=== PATIENT | female | born 1940 | race American Indian/Alaskan Native ===

== ENCOUNTER 2016-10-03 19:37 | Emergency (ER) | payer MEDICARE, MEDICAID ==
[~2016-10-03] VITALS: Ht 162.6 cm; Wt 71.9 kg
[~2016-10-03 19:37] MED LIST: ACTONEL PO; ATOR10TA PO; CEFD300C37 PO; INSULIN 70/30 SQ; LEVO25TA4 PO; LIPITOR PO; METF500T4 PO; METFORMIN PO; RAMI1.25 PO; SYNTHROID PO
[2016-10-03 21:15] VITALS: BP 128/53
== END 2016-10-03 21:22 | disposition home or self-care (01) ==
LOC: ED 21:10
DX: N30.00 Acute cystitis without hematuria (principal); E11.9 Type 2 diabetes mellitus without complications; I10 Essential (primary) hypertension; Z86.73 Personal history of transient ischemic attack (TIA), and cerebral infarction without residual deficits
CPT/HCPCS: 81001; 87077; 87086; 87186; 99284

== ENCOUNTER → 2016-10-13 | Outpatient (CLI) | payer MEDICARE, MEDICAID | END | disposition home or self-care (01) | LOC: CFH 10:04 | PROVIDERS: ATTEND Internal Medicine Cardiovascular Disease | DX: I08.3 Combined rheumatic disorders of mitral, aortic and tricuspid valves (principal); I10 Essential (primary) hypertension; E78.5 Hyperlipidemia, unspecified | CPT/HCPCS: 93306 ==

== ENCOUNTER → 2016-10-20 | Outpatient (CLI) | payer MEDICARE, MEDICAID ==
[2016-10-20 14:07] LABS: ASPARTATE AMINO TRANSFERASE 17 U/L (15-37); BLOOD UREA NITROGEN 7 mg/dL (7-18)
== END | disposition home or self-care (01) ==
LOC: LAB 08:40
PROVIDERS: ATTEND Internal Medicine Cardiovascular Disease
DX: E11.9 Type 2 diabetes mellitus without complications (principal); I10 Essential (primary) hypertension; I35.1 Nonrheumatic aortic (valve) insufficiency
CPT/HCPCS: 36415; 80053; 80061; 83036; 84436; 84481; 85025

== ENCOUNTER → 2016-11-11 | Outpatient (CLI) | payer MEDICARE, MEDICAID | END | disposition home or self-care (01) | LOC: CFH 12:49 | PROVIDERS: ATTEND Nurse Practitioner | DX: M25.552 Pain in left hip (principal); Z96.642 Presence of left artificial hip joint; Z98.1 Arthrodesis status; Z98.890 Other specified postprocedural states ==

== ENCOUNTER 2017-06-30 11:24 | Emergency (ER) | payer MEDICARE, MEDICAID ==
[~2017-06-30] VITALS: Ht 162.6 cm; Wt 73.8 kg
[2017-06-30 13:39] VITALS: BP 148/79
== END 2017-06-30 13:41 | disposition home or self-care (01) ==
LOC: ED 13:35
DX: S83.92XA Sprain of unspecified site of left knee, initial encounter (principal); S73.102A Unspecified sprain of left hip, initial encounter; S50.01XA Contusion of right elbow, initial encounter; W01.0XXA Fall on same level from slipping, tripping and stumbling without subsequent striking against object, initial encounter; Y93.89 Activity, other specified; Y92.009 Unspecified place in unspecified non-institutional (private) residence as the place of occurrence of the external cause; Y99.8 Other external cause status
CPT/HCPCS: 99284

== ENCOUNTER → 2017-07-23 | Outpatient (CLI) | payer MEDICARE, MEDICAID ==
[2017-07-23 12:36] LABS: HCT (SEDRATE) 38.6 % (34.6-47.8)
== END | disposition home or self-care (01) ==
LOC: LAB 09:37
PROVIDERS: ATTEND Orthopaedic Surgery
DX: Z47.1 Aftercare following joint replacement surgery (principal); Z96.642 Presence of left artificial hip joint
CPT/HCPCS: 36415; 85651; 86140

== ENCOUNTER → 2017-09-14 | Outpatient (CLI) | payer MEDICAID, MEDICARE | END | disposition home or self-care (01) | LOC: CFH 08:17 | PROVIDERS: ATTEND Nurse Practitioner | DX: M48.061 Spinal stenosis, lumbar region without neurogenic claudication (principal); S32.020D Wedge compression fracture of second lumbar vertebra, subsequent encounter for fracture with routine healing; S32.030D Wedge compression fracture of third lumbar vertebra, subsequent encounter for fracture with routine healing; X58.XXXD Exposure to other specified factors, subsequent encounter | CPT/HCPCS: 72110; 72148 ==

== ENCOUNTER 2017-10-20 10:48 | Emergency (ER) | payer MEDICARE ==
[~2017-10-20] VITALS: Ht 162.6 cm; Wt 72.6 kg
[~2017-10-20 10:48] MED LIST changes: -METF500T4 PO; +METF500T5 PO
[2017-10-20 12:10] VITALS: BP 151/76
== END 2017-10-20 12:13 | disposition home or self-care (01) ==
LOC: ED 12:09
DX: H65.01 Acute serous otitis media, right ear (principal); Z88.5 Allergy status to narcotic agent; Z88.0 Allergy status to penicillin; Z88.6 Allergy status to analgesic agent; Z88.8 Allergy status to other drugs, medicaments and biological substances
CPT/HCPCS: 99283; 99284

== ENCOUNTER 2017-11-28 09:44 | Observation (INO) | payer MEDICARE, MEDICAID ==
[~2017-11-28] VITALS: Ht 162.6 cm; Wt 70.5 kg
[2017-11-28] MEDS ORDERED: HYDROcodone/APAP 5/325 TABLET PO ONE (10:30)
[2017-11-28] MEDS ORDERED: ONDANSETRON 2MG/ML, 2ML IVPush ONE (10:30)
[2017-11-28 10:43] LABS: BASOPHILS # (AUTO) 0.03 x10^3/uL (0-0.1); BASOPHILS % (AUTO) 1 % (0-1); EOSINOPHILS # (AUTO) 0.04 x10^3/uL (0-0.4); EOSINOPHILS % (AUTO) 1 % (1-7); LYMPHOCYTES # (AUTO) 1.45 x10^3/uL (1-3.4); LYMPHOCYTES % (AUTO) 23 % (22-44); MD NO; MEAN CORPUSCULAR HEMOGLOBIN 33.5 pg (27.0-34.8); MEAN CORPUSCULAR HGB CONC 34.4 g/dL (32.4-35.8); MEAN CORPUSCULAR VOLUME 97.4 fL (80-100); MEAN PLATELET VOLUME 6.9 fL (7.4-10.4); MONOCYTES # (AUTO) 0.46 x10^3/uL (0.2-0.8); MONOCYTES % (AUTO) 7 % (2-9); NEUTROPHILS # (AUTO) 4.24 x10^3/uL (1.8-6.8); NEUTROPHILS % (AUTO) 68 % (42-75); PLATELET COUNT 359 x10^3/uL (130-400); RED BLOOD COUNT 4.41 x10^6/uL (3.82-5.3); RED CELL DISTRIBUTION WIDTH 12.8 % (9.6-15.2)
[2017-11-28 10:51] LABS: ALANINE AMINOTRANSFERASE 18 U/L (12-78); ANION GAP 11 mmol/L (5-15); CALCIUM 8.6 mg/dL (8.5-10.1); CHLORIDE 103 mmol/L (98-107); CREATININE 0.64 mg/dL (0.55-1.02)
[2017-11-28 10:54] LABS: INTERNATIONAL NORMALIZED RATIO 0.96 (0.93-1.1)
[2017-11-28 10:55] LABS: ALKALINE PHOSPHATASE 65 U/L (45-117); BILIRUBIN,TOTAL 0.5 mg/dL (0.2-1.0); TOTAL PROTEIN 7.8 g/dL (6.4-8.2); TROPONIN I < 0.015 ng/mL (0.000-0.045)
[2017-11-28] MEDS ORDERED: ONDANSETRON ODT 4 MG ONE (10:56)
[2017-11-28] MEDS ORDERED: OMNIPAQUE 350 MG/ML, 100ML BOTTLE ONE (10:57)
[2017-11-28] MEDS ORDERED: HYDROcodone/APAP 5/325 TABLET ONE (10:57)
[2017-11-28] MEDS ORDERED: ONDANSETRON ODT 4 MG PO ONE (11:00)
[2017-11-28] MEDS ORDERED: ASPI-650 PO (11:08)
[2017-11-28] MEDS ORDERED: HYDR-882 PO (11:08)
[2017-11-28] MEDS ORDERED: ENALAPRILAT 1.25 MG/ML, 2ML IVPush PRN (13:30)
[2017-11-28] MEDS ORDERED: POLYETHYLENE GLYCOL 17 GM PACKET PO PRN (13:30)
[2017-11-28] MEDS ORDERED: ACETAMINOPHEN 325 MG TABLET PO PRN (13:30)
[2017-11-28] MEDS ORDERED: morphine SULFATE 10 MG/ML, 1ML IVPush PRN ×2 (13:30→15:00)
[2017-11-28] MEDS ORDERED: ONDANSETRON 2MG/ML, 2ML IVPush PRN (13:30)
[2017-11-28] MEDS ORDERED: LABETALOL 5MG/ML, 20ML IVPush PRN (13:30)
[2017-11-28] MEDS ORDERED: DOCUSATE 100 MG CAPSULE PO PRN (13:30)
[2017-11-28] MEDS ORDERED: BISACODYL 10 MG SUPP PR PRN (13:30)
[2017-11-28 13:44] LABS: TROPONIN I < 0.015 ng/mL (0.000-0.045)
[2017-11-28 13:54] LABS: HEMOGLOBIN A1C 7.7 % (4.2-6.3)
[2017-11-28] MEDS: HEPARIN 5,000 UNITS/ML, 1ML SQ SCH ×2 (14:12→21:42)
[2017-11-28 14:47] VITALS: BP 148/83
[2017-11-28 19:37] LABS: TROPONIN I < 0.015 ng/mL (0.000-0.045)
[2017-11-28 19:58] VITALS: BP 126/70
[2017-11-28] MEDS ORDERED: MAGNESIUM SULFATE 4 GM in SODIUM CHLORIDE 0.9% 100 ML IV ONE (20:00)
[2017-11-29 00:33] VITALS: BP 124/68
[2017-11-29] MEDS: HEPARIN 5,000 UNITS/ML, 1ML SQ SCH ×2 (04:47→12:37)
[2017-11-29 05:56] LABS: BASOPHILS # (AUTO) 0.04 x10^3/uL (0-0.1); BASOPHILS % (AUTO) 1 % (0-1); EOSINOPHILS # (AUTO) 0.15 x10^3/uL (0-0.4); EOSINOPHILS % (AUTO) 3 % (1-7); LYMPHOCYTES # (AUTO) 1.75 x10^3/uL (1-3.4); LYMPHOCYTES % (AUTO) 37 % (22-44); MD NO; MEAN CORPUSCULAR HEMOGLOBIN 33.7 pg (27.0-34.8); MEAN CORPUSCULAR HGB CONC 34.4 g/dL (32.4-35.8); MEAN PLATELET VOLUME 6.7 fL (7.4-10.4); MONOCYTES # (AUTO) 0.32 x10^3/uL (0.2-0.8); MONOCYTES % (AUTO) 7 % (2-9); NEUTROPHILS # (AUTO) 2.46 x10^3/uL (1.8-6.8); NEUTROPHILS % (AUTO) 52 % (42-75); PLATELET COUNT 317 x10^3/uL (130-400); RED BLOOD COUNT 4.16 x10^6/uL (3.82-5.3); RED CELL DISTRIBUTION WIDTH 13.1 % (9.6-15.2)
[2017-11-29 05:57] LABS: ANION GAP 8 mmol/L (5-15); CALCIUM 8.8 mg/dL (8.5-10.1); CHLORIDE 103 mmol/L (98-107)
[2017-11-29 06:01] LABS: CHOL/HDL RATIO 3.9; CHOLESTEROL, TOTAL 218 mg/dL (140-239); HDL CHOL % 26 % (28-40); HDL CHOLESTEROL (DIRECT) 56 mg/dL (40-60); LDL CHOLESTEROL,CALCULATED 115 mg/dL (54-169); LDL/HDL RATIO 2.1 (0.5-3.0); TRIGLYCERIDES 233 mg/dL (50-200); VLDL CHOLESTEROL 47 mg/dL (0-25)
[2017-11-29 07:21] VITALS: BP 126/77
[2017-11-29] MEDS ORDERED: REGADENOSON 0.4 MG/5 ML SYRINGE ONE (08:00)
[2017-11-29 13:12] VITALS: BP 124/74
== END 2017-11-29 17:09 | disposition home or self-care (01) ==
LOC: ED 12:07 → INTOOBSV 12:41 → EDIP 12:41 → 5SO 13:45
PROVIDERS: ADMIT Hospitalist; ATTEND Hospitalist
DX: R07.89 Other chest pain (principal); I11.9 Hypertensive heart disease without heart failure; E78.5 Hyperlipidemia, unspecified; E11.9 Type 2 diabetes mellitus without complications; E03.9 Hypothyroidism, unspecified; I25.10 Atherosclerotic heart disease of native coronary artery without angina pectoris; I38 Endocarditis, valve unspecified; Z79.84 Long term (current) use of oral hypoglycemic drugs; Z86.73 Personal history of transient ischemic attack (TIA), and cerebral infarction without residual deficits
CPT/HCPCS: 36415; 71045; 71275; 74175; 78452; 80048; 80053; 80061; 83036; 83735; 83880; 84100; 84484; 85025; 85610; 93005; 93017; 93306; 93971; 96365; 96366; 96372; 99285; A9502; C9898; G0378; J1644; J2785; J3475; Q0162; Q9967

== ENCOUNTER 2018-05-19 11:03 | Emergency (ER) | payer MEDICARE, MEDICAID ==
[~2018-05-19] VITALS: Ht 162.6 cm; Wt 73.8 kg
[~2018-05-19 11:03] MED LIST changes: +ASPI-650 PO; +HYDR-3653 PO; +METF500T17 PO; -METF500T5 PO; -RAMI1.25 PO; +RAMI1.2524 PO
[2018-05-19 11:08] VITALS: BP 134/79
== END 2018-05-19 11:53 | disposition home or self-care (01) ==
LOC: ED 11:47
DX: K08.89 Other specified disorders of teeth and supporting structures (principal); I10 Essential (primary) hypertension; E03.9 Hypothyroidism, unspecified; E11.9 Type 2 diabetes mellitus without complications; Z86.73 Personal history of transient ischemic attack (TIA), and cerebral infarction without residual deficits; Z88.5 Allergy status to narcotic agent; Z88.0 Allergy status to penicillin; Z88.1 Allergy status to other antibiotic agents; Z88.6 Allergy status to analgesic agent
CPT/HCPCS: 99283

== ENCOUNTER → 2018-06-15 | Outpatient (CLI) | payer MEDICARE, MEDICAID ==
[2018-06-15 12:45] LABS: ALBUMIN 3.9 g/dL (3.4-5.0); ANION GAP 4 mmol/L (5-15); CALCIUM 8.4 mg/dL (8.5-10.1); CHLORIDE 109 mmol/L (98-107)
[2018-06-15 12:49] LABS: ALANINE AMINOTRANSFERASE 19 U/L (12-78); ALKALINE PHOSPHATASE 47 U/L (45-117); BILIRUBIN,TOTAL 0.6 mg/dL (0.2-1.0); CHOL/HDL RATIO 3.1; CHOLESTEROL, TOTAL 194 mg/dL (140-239); HDL CHOL % 32 % (28-40); HDL CHOLESTEROL (DIRECT) 62 mg/dL (40-60); LDL CHOLESTEROL,CALCULATED 82 mg/dL (54-169); LDL/HDL RATIO 1.3 (0.5-3.0); TOTAL PROTEIN 7.1 g/dL (6.4-8.2); TRIGLYCERIDES 252 mg/dL (50-200); VLDL CHOLESTEROL 50 mg/dL (0-25)
[2018-06-15 13:18] LABS: HEMOGLOBIN A1C 8.3 % (4.2-6.3)
== END | disposition home or self-care (01) ==
LOC: CFH 09:43
PROVIDERS: ATTEND Internal Medicine Cardiovascular Disease
DX: N30.00 Acute cystitis without hematuria (principal); E78.00 Pure hypercholesterolemia, unspecified; I10 Essential (primary) hypertension; I35.1 Nonrheumatic aortic (valve) insufficiency; I35.8 Other nonrheumatic aortic valve disorders; E11.9 Type 2 diabetes mellitus without complications
CPT/HCPCS: 36415; 80053; 80061; 83036

== ENCOUNTER 2018-10-11 08:11 | Emergency (ER) | payer MEDICAID, MEDICARE ==
[~2018-10-11] VITALS: Ht 162.6 cm; Wt 69.2 kg
[~2018-10-11 08:11] MED LIST changes: +LEVO750T26 PO
[2018-10-11 08:18] VITALS: BP 137/66
--- NOTE | 2018-10-11 09:43 | NUR ---
FELL 10/06/18. MGLF ONTO LEFT HIP. DENIES LOC OR HEAD TRAUMA. RESTING ON GURNEY. NADN. FAMILY AT BEDSIDE.
--- NOTE | 2018-10-11 10:07 | NUR ---
Patient/Caregiver given discharge instructions and they have confirmed that they understand the instructions. Patient to DC desk by wc with family. Pt left with all personal belongings.
== END 2018-10-11 10:13 | disposition home or self-care (01) ==
LOC: ED 10:00
DX: S73.101A Unspecified sprain of right hip, initial encounter (principal); S70.02XA Contusion of left hip, initial encounter; E11.9 Type 2 diabetes mellitus without complications; I10 Essential (primary) hypertension; E07.9 Disorder of thyroid, unspecified; Z86.73 Personal history of transient ischemic attack (TIA), and cerebral infarction without residual deficits; W17.89XA Other fall from one level to another, initial encounter; Y93.89 Activity, other specified; Y92.488 Other paved roadways as the place of occurrence of the external cause; Y99.8 Other external cause status
CPT/HCPCS: 99283

== ENCOUNTER 2019-02-13 11:27 | Emergency (ER) | payer MEDICARE, MEDICAID ==
[~2019-02-13] VITALS: Ht 162.6 cm; Wt 68.0 kg
[2019-02-13 11:29] VITALS: BP 99/43
== END 2019-02-13 12:24 | disposition home or self-care (01) ==
LOC: ED 12:06
DX: S90.112A Contusion of left great toe without damage to nail, initial encounter (principal); I10 Essential (primary) hypertension; E11.9 Type 2 diabetes mellitus without complications; Z96.641 Presence of right artificial hip joint; Z86.39 Personal history of other endocrine, nutritional and metabolic disease; W20.8XXA Other cause of strike by thrown, projected or falling object, initial encounter; Y93.89 Activity, other specified; Y92.89 Other specified places as the place of occurrence of the external cause; Y99.8 Other external cause status
CPT/HCPCS: 99283

== ENCOUNTER → 2019-03-07 | Outpatient (CLI) | payer MEDICARE, MEDICAID ==
[2019-03-07 12:55] LABS: BASOPHILS # (AUTO) 0.03 x10^3/uL (0-0.1); BASOPHILS % (AUTO) 1 % (0-1); EOSINOPHILS # (AUTO) 0.07 x10^3/uL (0-0.4); EOSINOPHILS % (AUTO) 2 % (1-7); LYMPHOCYTES # (AUTO) 1.38 x10^3/uL (1-3.4); LYMPHOCYTES % (AUTO) 29 % (22-44); MD NO; MEAN CORPUSCULAR HEMOGLOBIN 32.8 pg (27.0-34.8); MEAN CORPUSCULAR HGB CONC 33.1 g/dL (32.4-35.8); MEAN CORPUSCULAR VOLUME 98.8 fL (80-100); MONOCYTES # (AUTO) 0.26 x10^3/uL (0.2-0.8); MONOCYTES % (AUTO) 6 % (2-9); NEUTROPHILS # (AUTO) 2.96 x10^3/uL (1.8-6.8); NEUTROPHILS % (AUTO) 63 % (42-75); PLATELET COUNT 279 x10^3/uL (130-400); RED CELL DISTRIBUTION WIDTH 14.6 % (9.6-15.2)
[2019-03-07 13:14] LABS: CHLORIDE 106 mmol/L (98-107)
[2019-03-07 13:30] LABS: ALANINE AMINOTRANSFERASE 20 U/L (12-78); ALBUMIN 3.8 g/dL (3.4-5.0); ALKALINE PHOSPHATASE 51 U/L (45-117); ANION GAP 8 mmol/L (5-15); BILIRUBIN,TOTAL 0.6 mg/dL (0.2-1.0); CALCIUM 8.9 mg/dL (8.5-10.1); CHOL/HDL RATIO 2.2; CHOLESTEROL, TOTAL 129 mg/dL (140-239); CREATININE 0.57 mg/dL (0.55-1.02); HDL CHOL % 47 % (28-40); HDL CHOLESTEROL (DIRECT) 60 mg/dL (40-60); LDL CHOLESTEROL,CALCULATED 45 mg/dL (54-169); LDL/HDL RATIO 0.8 (0.5-3.0); T4 (THYROXINE) 11.9 mcg/dL (4.8-13.9); TOTAL PROTEIN 7.4 g/dL (6.4-8.2); TRIGLYCERIDES 122 mg/dL (50-200); VLDL CHOLESTEROL 24 mg/dL (0-25)
== END | disposition home or self-care (01) ==
LOC: CFH 09:46
PROVIDERS: ATTEND Internal Medicine Cardiovascular Disease
DX: E11.9 Type 2 diabetes mellitus without complications (principal); E78.00 Pure hypercholesterolemia, unspecified; I10 Essential (primary) hypertension; I35.1 Nonrheumatic aortic (valve) insufficiency; I63.9 Cerebral infarction, unspecified
CPT/HCPCS: 36415; 80053; 80061; 84436; 84443; 84481; 85025

== ENCOUNTER → 2019-08-26 | Outpatient (CLI) | payer MEDICARE, MEDICAID | END | disposition home or self-care (01) | LOC: CFH 07:58 | PROVIDERS: ATTEND Internal Medicine Cardiovascular Disease | DX: I08.2 Rheumatic disorders of both aortic and tricuspid valves (principal) | CPT/HCPCS: 93306 ==

== ENCOUNTER 2019-10-04 13:52 | Inpatient (IN) | payer MEDICARE, MEDICAID ==
[~2019-10-04] VITALS: Ht 162.6 cm; Wt 78.3 kg
--- NOTE | 2019-10-04 14:58 | NUR ---
PT A&OX4, RESP EVEN & UNLABORED, SPEECH CLEAR. PT STATES SHE FELL 2 DAYS AGO AND ON 09/19. C/O RT SIDED BILL - TOOK TYLENOL AT 1200, ALEVE AT 0900. "AT 4:00 I TOOK IBUPROFEN" (IT'S NOW 1500) FOR HIP AND LEG PAIN. REPORTS LEG PAIN SINCE 09/19. 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 USES A WALKER OR WALKING STICK INTERMITTENTLY. DR BARR NOW BS FOR EXAM. PT REPORTS BILL PAIN "SINCE BLOOD CLOT IN MY HEAD" (2003) "I WENT IN A COMA FOR 3 WEEKS".
--- NOTE | 2019-10-04 15:03 | NUR ---
WHEN ASKED ABOUT ALLERGIES, PT REPLIED "ALL THE MEDICINE I'M ALLERGIC TO". STATES LIST IS AT THE PHARMACY.
[2019-10-04 15:07] LABS: BASOPHILS # (AUTO) 0.04 x10^3/uL (0-0.1); BASOPHILS % (AUTO) 1 % (0-1); EOSINOPHILS # (AUTO) 0.13 x10^3/uL (0-0.4); EOSINOPHILS % (AUTO) 3 % (1-7); LYMPHOCYTES # (AUTO) 1.41 x10^3/uL (1-3.4); LYMPHOCYTES % (AUTO) 28 % (22-44); MD NO; MEAN CORPUSCULAR HEMOGLOBIN 31.7 pg (27.0-34.8); MEAN CORPUSCULAR HGB CONC 32.9 g/dL (32.4-35.8); MEAN CORPUSCULAR VOLUME 96.3 fL (80-100); MEAN PLATELET VOLUME 6.2 fL (7.4-10.4); MONOCYTES # (AUTO) 0.42 x10^3/uL (0.2-0.8); MONOCYTES % (AUTO) 8 % (2-9); NEUTROPHILS % (AUTO) 60 % (42-75); PLATELET COUNT 352 x10^3/uL (130-400)
[2019-10-04] MEDS ORDERED: ATOR40TA78 PO (15:07)
[2019-10-04] MEDS ORDERED: VITAMIN D3 (15:07)
[2019-10-04] MEDS ORDERED: OMEP20CA20 PO (15:07)
[2019-10-04] MEDS ORDERED: CARV6.252 PO (15:07)
[2019-10-04] MEDS ORDERED: LEVO150T PO (15:07)
[2019-10-04] MEDS ORDERED: TIMO5DRO5 OP (15:07)
[2019-10-04] MEDS ORDERED: ALEVE (15:08)
[2019-10-04] MEDS ORDERED: TYLENOL (15:08)
[2019-10-04 15:10] LABS: ALANINE AMINOTRANSFERASE 15 U/L (12-78); ANION GAP 6 mmol/L (5-15); CHLORIDE 98 mmol/L (98-107); CREATININE 0.68 mg/dL (0.55-1.02)
[2019-10-04 15:15] LABS: ALKALINE PHOSPHATASE 64 U/L (45-117); BILIRUBIN,TOTAL 0.6 mg/dL (0.2-1.0); TOTAL PROTEIN 7.2 g/dL (6.4-8.2); TROPONIN I < 0.015 ng/mL (0.000-0.045)
[2019-10-04] MEDS ORDERED: SODIUM CHLORIDE FLUSH 10ML SYR IVF ONE (15:30)
[2019-10-04] MEDS ORDERED: SODIUM CHLORIDE 0.9% 1,000ML IVBOLUS ONE (15:30)
--- NOTE | 2019-10-04 15:49 | NUR ---
AMBULATORY TO & FROM ROOM BR W/ ASSIST FROM THIS RN. VOIDED SPECIMEN PROVIDED: CLOUDY YELLOW.
--- NOTE | 2019-10-04 15:49 | NUR ---
WRIST SPLINT APPLIED PER CUSHION SEWER. PT C/O CHRONIC BILAT WRIST PAIN. REPORTS HX WRIST SURGERY BILAT
--- NOTE | 2019-10-04 16:02 | NUR ---
TO RADIOLOGY PER HENRY
[2019-10-04 16:18] LABS: MICROSCOPIC AUTO
[2019-10-04] MEDS ORDERED: MAGNESIUM SULFATE PMX 4GM/100M 100 ML IV ONE (16:30)
--- NOTE | 2019-10-04 16:32 | NUR ---
IV ATTEMPTED X1.
--- NOTE | 2019-10-04 16:41 | NUR ---
ATTEMPTED TO CALL REPORT; RECEIVING RN NOT CURRENTLY AVAILABLE, BUT WILL CALL BACK.
--- NOTE | 2019-10-04 17:04 | NUR ---
PT REPORT TO CHAD ALEMAN FOR ROOM 331. MAG INFUSION WILL BE STARTED AFTER ARRIVAL TO FLOOR DUE TO LACK OF PUMPS IN ED.
--- NOTE | 2019-10-04 17:21 | NUR ---
PT AWAITING TRANSFER TO FLOOR
--- NOTE | 2019-10-04 17:21 | NUR ---
AMBULATORY TO & FROM BR W/ RN ASSIST
--- NOTE | 2019-10-04 17:28 | NUR ---
REPORT FROM CHAD SANCHEZ. PT CARE RESPONSIBLITIES ASSUMED.
[2019-10-04] MEDS: INSULIN LISPRO 100 UNITS/ML, PEN SQ-INSULIN SCH ×3 (17:30→21:00)
[2019-10-04] MEDS ORDERED: hydrALAzine 20 MG/ML, 1ML IVPush PRN (17:30)
[2019-10-04] MEDS ORDERED: ONDANSETRON 2MG/ML, 2ML IVPush PRN (17:30)
[2019-10-04] MEDS ORDERED: ENOXAPARIN 30 MG/0.3 ML SQ SCH (17:30)
[2019-10-04] MEDS ORDERED: ONDANSETRON ODT 4 MG PO PRN (17:30)
[2019-10-04] MEDS ORDERED: ACETAMINOPHEN 325 MG TABLET PO PRN (17:30)
--- NOTE | 2019-10-04 17:31 | NUR ---
PT REPORT TO CHAD MCKEON. PT CARE TRANSFERRED.
[2019-10-04 17:37] LABS: HCT (SEDRATE) 36.6 % (34.6-47.8)
[2019-10-04] MEDS ORDERED: VALS160T3 PO (18:33)
[2019-10-04] MEDS ORDERED: METH500T7 PO (18:33)
[2019-10-04] MEDS ORDERED: GADOTERATE 7.5 MMOL/15 ML SYR ONE (18:42)
[2019-10-04] MEDS: SODIUM CHLORIDE 0.9% 1,000 ML IV SCH (19:53)
[2019-10-04 19:55] VITALS: BP 171/83
[2019-10-04] MEDS: CARVEDILOL 6.25 MG TABLET PO SCH (19:55)
[2019-10-04] MEDS: MELATONIN 5 MG TABLET PO PRN (21:35)
[2019-10-04] MEDS: HYDROcodone/APAP 5/325 TABLET PO PRN (21:36)
[2019-10-04] MEDS: CEFTRIAXONE PMX 1GM/50ML 50 ML IV SCH (22:04)
[2019-10-04] MEDS: ENOXAPARIN 40 MG/0.4 ML SQ SCH (22:05)
[2019-10-05] VITALS (7 sets, daily range): BP systolic 90–151; BP diastolic 55–82
[2019-10-05] MEDS: HYDROcodone/APAP 5/325 TABLET PO PRN ×2 (02:15→20:03)
[2019-10-05 02:33] LABS: SODIUM,URINE RANDOM 83 mmol/L
[2019-10-05 02:59] LABS: OSMOLALITY,URINE 322 mOsm/kg (500-850)
[2019-10-05 03:09] LABS: MICROSCOPIC INDICATED
[2019-10-05 03:19] LABS: BASOPHILS # (AUTO) 0.03 x10^3/uL (0-0.1); BASOPHILS % (AUTO) 1 % (0-1); EOSINOPHILS # (AUTO) 0.17 x10^3/uL (0-0.4); EOSINOPHILS % (AUTO) 3 % (1-7); LYMPHOCYTES # (AUTO) 1.42 x10^3/uL (1-3.4); LYMPHOCYTES % (AUTO) 26 % (22-44); MD NO; MEAN CORPUSCULAR HGB CONC 33.1 g/dL (32.4-35.8); MEAN CORPUSCULAR VOLUME 96.6 fL (80-100); MEAN PLATELET VOLUME 6.4 fL (7.4-10.4); MONOCYTES # (AUTO) 0.38 x10^3/uL (0.2-0.8); MONOCYTES % (AUTO) 7 % (2-9); NEUTROPHILS # (AUTO) 3.51 x10^3/uL (1.8-6.8); NEUTROPHILS % (AUTO) 64 % (42-75); PLATELET COUNT 355 x10^3/uL (130-400); RED BLOOD COUNT 3.82 x10^6/uL (3.82-5.3); RED CELL DISTRIBUTION WIDTH 14.7 % (9.6-15.2)
[2019-10-05 03:30] LABS: ANION GAP 6 mmol/L (5-15); CALCIUM 8.6 mg/dL (8.5-10.1); CHLORIDE 102 mmol/L (98-107); CHOLESTEROL, TOTAL 124 mg/dL (140-239); CREATININE 0.54 mg/dL (0.55-1.02)
[2019-10-05 03:40] LABS: CHOL/HDL RATIO 2.3; HDL CHOL % 44 % (28-40); HDL CHOLESTEROL (DIRECT) 54 mg/dL (40-60); LDL CHOLESTEROL,CALCULATED 28 mg/dL (54-169); LDL/HDL RATIO 0.5 (0.5-3.0); TRIGLYCERIDES 208 mg/dL (50-200); VLDL CHOLESTEROL 42 mg/dL (0-25)
[2019-10-05] MEDS: ASPIRIN 325 MG TABLET EC PO SCH ×2 (05:49→08:13)
[2019-10-05] MEDS: LEVOTHYROXINE 150 MCG TABLET PO SCH (05:51)
[2019-10-05] MEDS: SENNA/DOCUSATE TABLET PO SCH (08:13)
[2019-10-05] MEDS: PANTOPRAZOLE 40 MG IV IVPush SCH (08:13)
[2019-10-05] MEDS: CARVEDILOL 6.25 MG TABLET PO SCH ×2 (08:13→20:02)
[2019-10-05] MEDS: INSULIN LISPRO 100 UNITS/ML, PEN SQ-INSULIN SCH ×4 (09:59→20:05)
[2019-10-05] MEDS: TIMOLOL OPHTH 0.5%, 5ML OP SCH (09:59)
[2019-10-05] MEDS: SODIUM CHLORIDE 0.9% 1,000 ML IV SCH (17:19)
[2019-10-05] MEDS: CEFTRIAXONE PMX 1GM/50ML 50 ML IV SCH (17:20)
[2019-10-05] MEDS ORDERED: ENOXAPARIN 40 MG/0.4 ML SQ SCH (17:30)
[2019-10-05] MEDS: MELATONIN 5 MG TABLET PO PRN (20:02)
[2019-10-05] MEDS: ATORVASTATIN 40 MG TABLET PO SCH (20:03)
[2019-10-05] MEDS: ENOXAPARIN 40 MG/0.4 ML SQ SCH (21:38)
[2019-10-06 01:55] VITALS: BP 113/66
[2019-10-06] MEDS: HYDROcodone/APAP 5/325 TABLET PO PRN ×3 (01:57→20:21)
[2019-10-06] MEDS: BUTALB/APAP/CAFFEINE 50MG/325MG/40MG PO PRN ×2 (04:12→11:41)
[2019-10-06] MEDS: LEVOTHYROXINE 150 MCG TABLET PO SCH (05:26)
[2019-10-06] MEDS: ASPIRIN 325 MG TABLET EC PO SCH ×2 (05:27→08:50)
[2019-10-06 06:57] LABS: BASOPHILS # (AUTO) 0.04 x10^3/uL (0-0.1); BASOPHILS % (AUTO) 1 % (0-1); EOSINOPHILS # (AUTO) 0.18 x10^3/uL (0-0.4); EOSINOPHILS % (AUTO) 3 % (1-7); LYMPHOCYTES # (AUTO) 1.51 x10^3/uL (1-3.4); LYMPHOCYTES % (AUTO) 25 % (22-44); MD NO; MEAN CORPUSCULAR HEMOGLOBIN 31.9 pg (27.0-34.8); MEAN CORPUSCULAR HGB CONC 32.8 g/dL (32.4-35.8); MEAN CORPUSCULAR VOLUME 97.3 fL (80-100); MEAN PLATELET VOLUME 6.5 fL (7.4-10.4); MONOCYTES # (AUTO) 0.34 x10^3/uL (0.2-0.8); MONOCYTES % (AUTO) 6 % (2-9); NEUTROPHILS # (AUTO) 3.87 x10^3/uL (1.8-6.8); NEUTROPHILS % (AUTO) 65 % (42-75); PLATELET COUNT 343 x10^3/uL (130-400); RED BLOOD COUNT 3.55 x10^6/uL (3.82-5.3); RED CELL DISTRIBUTION WIDTH 14.3 % (9.6-15.2)
[2019-10-06 07:06] LABS: ANION GAP 6 mmol/L (5-15); CALCIUM 8.4 mg/dL (8.5-10.1); CHLORIDE 102 mmol/L (98-107); CREATININE 0.56 mg/dL (0.55-1.02)
[2019-10-06 07:23] VITALS: BP 133/86
[2019-10-06] MEDS: SODIUM CHLORIDE 0.9% 1,000 ML IV SCH (08:44)
[2019-10-06] MEDS: PANTOPRAZOLE 40 MG IV IVPush SCH (08:44)
[2019-10-06] MEDS: INSULIN LISPRO 100 UNITS/ML, PEN SQ-INSULIN SCH ×4 (08:49→20:22)
[2019-10-06] MEDS: TIMOLOL OPHTH 0.5%, 5ML OP SCH (08:50)
[2019-10-06] MEDS: SENNA/DOCUSATE TABLET PO SCH (08:50)
[2019-10-06] MEDS: CARVEDILOL 6.25 MG TABLET PO SCH ×2 (08:50→20:21)
[2019-10-06 13:52] VITALS: BP 125/75
[2019-10-06] MEDS: CEFTRIAXONE PMX 1GM/50ML 50 ML IV SCH (18:17)
[2019-10-06] MEDS: MOVIPREP POWDER 1 PREP KIT PO SCH ×2 (18:21→20:21)
[2019-10-06 19:19] VITALS: BP 109/65
[2019-10-06] MEDS: ATORVASTATIN 40 MG TABLET PO SCH (20:21)
[2019-10-07] VITALS (8 sets, daily range): BP systolic 90–158; BP diastolic 54–84
[2019-10-07] MEDS: SODIUM CHLORIDE 0.9% 1,000 ML IV SCH (01:36)
[2019-10-07] MEDS: LEVOTHYROXINE 150 MCG TABLET PO SCH (04:51)
[2019-10-07] MEDS: HYDROcodone/APAP 5/325 TABLET PO PRN ×2 (04:51→15:45)
[2019-10-07] MEDS: ASPIRIN 325 MG TABLET EC PO SCH ×2 (04:52→07:52)
[2019-10-07 07:01] LABS: BASOPHILS # (AUTO) 0.04 x10^3/uL (0-0.1); BASOPHILS % (AUTO) 1 % (0-1); EOSINOPHILS # (AUTO) 0.07 x10^3/uL (0-0.4); EOSINOPHILS % (AUTO) 1 % (1-7); LYMPHOCYTES # (AUTO) 1.68 x10^3/uL (1-3.4); LYMPHOCYTES % (AUTO) 26 % (22-44); MD NO; MEAN CORPUSCULAR HEMOGLOBIN 31.5 pg (27.0-34.8); MEAN CORPUSCULAR HGB CONC 32.5 g/dL (32.4-35.8); MEAN CORPUSCULAR VOLUME 96.8 fL (80-100); MEAN PLATELET VOLUME 6.2 fL (7.4-10.4); MONOCYTES % (AUTO) 5 % (2-9); NEUTROPHILS # (AUTO) 4.44 x10^3/uL (1.8-6.8); NEUTROPHILS % (AUTO) 68 % (42-75); PLATELET COUNT 324 x10^3/uL (130-400); RED BLOOD COUNT 3.05 x10^6/uL (3.82-5.3); RED CELL DISTRIBUTION WIDTH 14.7 % (9.6-15.2)
[2019-10-07 07:09] LABS: ANION GAP 6 mmol/L (5-15); CALCIUM 8.5 mg/dL (8.5-10.1); CHLORIDE 109 mmol/L (98-107)
[2019-10-07 07:10] LABS: CREATININE 0.46 mg/dL (0.55-1.02)
[2019-10-07] MEDS: INSULIN LISPRO 100 UNITS/ML, PEN SQ-INSULIN SCH ×4 (07:44→20:30)
[2019-10-07] MEDS: PANTOPRAZOLE 40 MG IV IVPush SCH (07:52)
[2019-10-07] MEDS ORDERED: CHLORHEXIDINE 15 ML UDC ONE (08:17)
[2019-10-07] MEDS ORDERED: PROPOFOL 10 MG/ML, 20ML ONE (09:01)
[2019-10-07] MEDS ORDERED: EPHEDRINE 50 MG/ML, 1ML ONE (09:13)
[2019-10-07] MEDS: BUTALB/APAP/CAFFEINE 50MG/325MG/40MG PO PRN (12:05)
[2019-10-07] MEDS: TIMOLOL OPHTH 0.5%, 5ML OP SCH (12:05)
[2019-10-07] MEDS: CARVEDILOL 6.25 MG TABLET PO SCH ×2 (12:05→20:09)
[2019-10-07] MEDS: MOVIPREP POWDER 1 PREP KIT PO SCH (12:06)
[2019-10-07] MEDS: SENNA/DOCUSATE TABLET PO SCH (12:06)
[2019-10-07] MEDS: CEFTRIAXONE PMX 1GM/50ML 50 ML IV SCH (17:17)
[2019-10-07 17:57] LABS: BASOPHILS # (AUTO) 0.02 x10^3/uL (0-0.1); BASOPHILS % (AUTO) 0 % (0-1); EOSINOPHILS # (AUTO) 0.06 x10^3/uL (0-0.4); EOSINOPHILS % (AUTO) 1 % (1-7); LYMPHOCYTES # (AUTO) 1.26 x10^3/uL (1-3.4); LYMPHOCYTES % (AUTO) 15 % (22-44); MD NO; MEAN CORPUSCULAR HEMOGLOBIN 32.1 pg (27.0-34.8); MEAN CORPUSCULAR HGB CONC 33.1 g/dL (32.4-35.8); MEAN CORPUSCULAR VOLUME 97.2 fL (80-100); MEAN PLATELET VOLUME 6.5 fL (7.4-10.4); MONOCYTES # (AUTO) 0.27 x10^3/uL (0.2-0.8); MONOCYTES % (AUTO) 3 % (2-9); NEUTROPHILS # (AUTO) 7.11 x10^3/uL (1.8-6.8); NEUTROPHILS % (AUTO) 81 % (42-75); PLATELET COUNT 281 x10^3/uL (130-400); RED BLOOD COUNT 2.37 x10^6/uL (3.82-5.3); RED CELL DISTRIBUTION WIDTH 14.2 % (9.6-15.2)
[2019-10-07] MEDS: ATORVASTATIN 40 MG TABLET PO SCH (20:30)
[2019-10-07] MEDS ORDERED: OMNIPAQUE 350 MG/ML, 100ML BOTTLE ONE (23:14)
[2019-10-08] MEDS: HYDROcodone/APAP 5/325 TABLET PO PRN ×4 (02:23→20:40)
[2019-10-08] MEDS: BUTALB/APAP/CAFFEINE 50MG/325MG/40MG PO PRN (05:48)
[2019-10-08] MEDS: ASPIRIN 325 MG TABLET EC PO SCH (05:49)
[2019-10-08] MEDS: LEVOTHYROXINE 150 MCG TABLET PO SCH (05:49)
[2019-10-08 06:32] LABS: CHLORIDE 109 mmol/L (98-107)
[2019-10-08 06:33] LABS: MEAN CORPUSCULAR HGB CONC 34.1 g/dL (32.4-35.8); MEAN PLATELET VOLUME 6.7 fL (7.4-10.4); PLATELET COUNT 235 x10^3/uL (130-400); RED BLOOD COUNT 2.66 x10^6/uL (3.82-5.3)
[2019-10-08 06:46] LABS: ANION GAP 9 mmol/L (5-15); CALCIUM 8.3 mg/dL (8.5-10.1); CREATININE 0.42 mg/dL (0.55-1.02)
[2019-10-08] MEDS: INSULIN LISPRO 100 UNITS/ML, PEN SQ-INSULIN SCH ×4 (07:00→20:41)
[2019-10-08] MEDS: PANTOPRAZOLE 40 MG IV IVPush SCH (07:40)
[2019-10-08 07:44] VITALS: BP 157/79
[2019-10-08 07:44] LABS: MD SCAN
[2019-10-08 07:45] LABS: BASOPHILS # (AUTO) 0.05 x10^3/uL (0-0.1); BASOPHILS % (AUTO) 1 % (0-1); EOSINOPHILS # (AUTO) 0.09 x10^3/uL (0-0.4); EOSINOPHILS % (AUTO) 2 % (1-7); LYMPHOCYTES # (AUTO) 1.36 x10^3/uL (1-3.4); LYMPHOCYTES % (AUTO) 26 % (22-44); MONOCYTES # (AUTO) 0.28 x10^3/uL (0.2-0.8); MONOCYTES % (AUTO) 5 % (2-9); NEUTROPHILS % (AUTO) 66 % (42-75)
[2019-10-08] MEDS: TIMOLOL OPHTH 0.5%, 5ML OP SCH (09:00)
[2019-10-08] MEDS: CARVEDILOL 6.25 MG TABLET PO SCH ×2 (09:08→20:39)
[2019-10-08] MEDS: SODIUM CHLORIDE 0.9% 1,000 ML IV SCH (09:08)
[2019-10-08] MEDS: SENNA/DOCUSATE TABLET PO SCH (09:08)
[2019-10-08] MEDS: CEFTAZIDIME 1,000 MG in SODIUM CHLORIDE 0.9% 50 ML IV SCH (14:03)
[2019-10-08 14:11] VITALS: BP 100/59
[2019-10-08 20:09] VITALS: BP 127/80
[2019-10-08] MEDS: ATORVASTATIN 40 MG TABLET PO SCH (20:39)
[2019-10-09] VITALS (11 sets, daily range): BP systolic 101–135; BP diastolic 54–80
[2019-10-09] MEDS: HYDROcodone/APAP 5/325 TABLET PO PRN ×3 (00:50→20:46)
[2019-10-09] MEDS: SODIUM CHLORIDE 0.9% 1,000 ML IV SCH ×2 (01:17→17:30)
[2019-10-09] MEDS: CEFTAZIDIME 1,000 MG in SODIUM CHLORIDE 0.9% 50 ML IV SCH ×2 (01:28→14:18)
[2019-10-09] MEDS: ASPIRIN 325 MG TABLET EC PO SCH (05:06)
[2019-10-09] MEDS: LEVOTHYROXINE 150 MCG TABLET PO SCH (05:21)
[2019-10-09 05:42] LABS: ANION GAP 8 mmol/L (5-15); CALCIUM 8.2 mg/dL (8.5-10.1); CHLORIDE 108 mmol/L (98-107); CREATININE 0.38 mg/dL (0.55-1.02)
[2019-10-09 05:51] LABS: MEAN CORPUSCULAR HEMOGLOBIN 32.2 pg (27.0-34.8); MEAN CORPUSCULAR HGB CONC 34.2 g/dL (32.4-35.8); MEAN CORPUSCULAR VOLUME 94.2 fL (80-100); MEAN PLATELET VOLUME 6.7 fL (7.4-10.4); PLATELET COUNT 227 x10^3/uL (130-400); RED BLOOD COUNT 2.39 x10^6/uL (3.82-5.3); RED CELL DISTRIBUTION WIDTH 15.2 % (9.6-15.2)
[2019-10-09 06:17] LABS: BASOPHILS # (AUTO) 0.03 x10^3/uL (0-0.1); BASOPHILS % (AUTO) 1 % (0-1); EOSINOPHILS # (AUTO) 0.14 x10^3/uL (0-0.4); EOSINOPHILS % (AUTO) 4 % (1-7); LYMPHOCYTES % (AUTO) 34 % (22-44); MD SCAN; MONOCYTES # (AUTO) 0.25 x10^3/uL (0.2-0.8); MONOCYTES % (AUTO) 7 % (2-9); NEUTROPHILS % (AUTO) 54 % (42-75)
[2019-10-09] MEDS: PANTOPRAZOLE 40MG TABLET PO SCH (07:37)
[2019-10-09] MEDS: INSULIN LISPRO 100 UNITS/ML, PEN SQ-INSULIN SCH ×4 (07:38→20:36)
[2019-10-09] MEDS: SENNA/DOCUSATE TABLET PO SCH (08:24)
[2019-10-09] MEDS: TIMOLOL OPHTH 0.5%, 5ML OP SCH (09:45)
[2019-10-09] MEDS: CARVEDILOL 6.25 MG TABLET PO SCH ×2 (10:44→20:36)
[2019-10-09] MEDS ORDERED: OMNIPAQUE 350 MG/ML, 100ML BOTTLE ONE (13:40)
[2019-10-09] MEDS: MOVIPREP POWDER 1 PREP KIT PO SCH (17:29)
[2019-10-09] MEDS: ATORVASTATIN 40 MG TABLET PO SCH (20:35)
[2019-10-10] MEDS: HYDROcodone/APAP 5/325 TABLET PO PRN ×3 (00:59→13:57)
[2019-10-10] MEDS: CEFTAZIDIME 1,000 MG in SODIUM CHLORIDE 0.9% 50 ML IV SCH ×2 (01:48→13:44)
[2019-10-10 02:16] VITALS: BP 143/80
[2019-10-10] MEDS: ASPIRIN 325 MG TABLET EC PO SCH (05:52)
[2019-10-10] MEDS: LEVOTHYROXINE 150 MCG TABLET PO SCH (05:52)
[2019-10-10] MEDS: MOVIPREP POWDER 1 PREP KIT PO SCH (05:53)
[2019-10-10] MEDS: INSULIN LISPRO 100 UNITS/ML, PEN SQ-INSULIN SCH ×4 (07:00→21:12)
[2019-10-10 07:51] VITALS: BP 140/61
[2019-10-10 07:54] VITALS: BP 147/66
[2019-10-10] MEDS: SENNA/DOCUSATE TABLET PO SCH (07:56)
[2019-10-10 07:57] VITALS: BP 137/77
[2019-10-10 08:06] LABS: ANION GAP 6 mmol/L (5-15); CALCIUM 8.2 mg/dL (8.5-10.1); CHLORIDE 111 mmol/L (98-107); CREATININE 0.39 mg/dL (0.55-1.02)
[2019-10-10] MEDS: TIMOLOL OPHTH 0.5%, 5ML OP SCH (08:23)
[2019-10-10] MEDS: CARVEDILOL 6.25 MG TABLET PO SCH ×2 (08:23→21:19)
[2019-10-10] MEDS: PANTOPRAZOLE 40MG TABLET PO SCH (08:23)
[2019-10-10 09:26] LABS: BASOPHILS # (AUTO) 0.03 x10^3/uL (0-0.1); BASOPHILS % (AUTO) 1 % (0-1); EOSINOPHILS # (AUTO) 0.15 x10^3/uL (0-0.4); EOSINOPHILS % (AUTO) 3 % (1-7); LYMPHOCYTES % (AUTO) 23 % (22-44); MD NO; MEAN CORPUSCULAR HEMOGLOBIN 30.9 pg (27.0-34.8); MEAN CORPUSCULAR HGB CONC 32.5 g/dL (32.4-35.8); MEAN CORPUSCULAR VOLUME 95.1 fL (80-100); MEAN PLATELET VOLUME 6.3 fL (7.4-10.4); MONOCYTES # (AUTO) 0.44 x10^3/uL (0.2-0.8); MONOCYTES % (AUTO) 8 % (2-9); NEUTROPHILS % (AUTO) 66 % (42-75); PLATELET COUNT 237 x10^3/uL (130-400); RED BLOOD COUNT 2.87 x10^6/uL (3.82-5.3); RED CELL DISTRIBUTION WIDTH 15.4 % (9.6-15.2)
[2019-10-10] MEDS: SODIUM CHLORIDE 0.9% 1,000 ML IV SCH (11:41)
[2019-10-10] MEDS ORDERED: CHLORHEXIDINE 15 ML UDC ONE (12:01)
[2019-10-10] MEDS ORDERED: PROPOFOL 50 ML ONE (12:01)
[2019-10-10 13:56] VITALS: BP 150/78
[2019-10-10] MEDS: BUTALB/APAP/CAFFEINE 50MG/325MG/40MG PO PRN (16:38)
[2019-10-10] MEDS: ATORVASTATIN 40 MG TABLET PO SCH (21:20)
[2019-10-10] MEDS: MAGNESIUM SULFATE PMX 2GM/50ML 50 ML IV SCH (21:20)
[2019-10-10 21:30] VITALS: BP 150/77
[2019-10-11 00:25] VITALS: BP 150/75
[2019-10-11] MEDS: BUTALB/APAP/CAFFEINE 50MG/325MG/40MG PO PRN ×3 (00:25→19:43)
[2019-10-11] MEDS: CEFTAZIDIME 1,000 MG in SODIUM CHLORIDE 0.9% 50 ML IV SCH ×2 (01:21→13:00)
[2019-10-11] MEDS: ASPIRIN 325 MG TABLET EC PO SCH (05:20)
[2019-10-11] MEDS: LEVOTHYROXINE 150 MCG TABLET PO SCH (05:20)
[2019-10-11] MEDS: SODIUM CHLORIDE 0.9% 1,000 ML IV SCH (05:21)
[2019-10-11 05:52] LABS: BASOPHILS # (AUTO) 0.02 x10^3/uL (0-0.1); BASOPHILS % (AUTO) 1 % (0-1); EOSINOPHILS # (AUTO) 0.13 x10^3/uL (0-0.4); EOSINOPHILS % (AUTO) 3 % (1-7); LYMPHOCYTES # (AUTO) 1.11 x10^3/uL (1-3.4); LYMPHOCYTES % (AUTO) 26 % (22-44); MD NO; MEAN CORPUSCULAR HEMOGLOBIN 31.3 pg (27.0-34.8); MEAN CORPUSCULAR HGB CONC 33.3 g/dL (32.4-35.8); MONOCYTES # (AUTO) 0.33 x10^3/uL (0.2-0.8); MONOCYTES % (AUTO) 8 % (2-9); NEUTROPHILS # (AUTO) 2.62 x10^3/uL (1.8-6.8); NEUTROPHILS % (AUTO) 62 % (42-75); PLATELET COUNT 256 x10^3/uL (130-400); RED BLOOD COUNT 2.63 x10^6/uL (3.82-5.3); RED CELL DISTRIBUTION WIDTH 15.8 % (9.6-15.2)
[2019-10-11 06:02] LABS: ALBUMIN 2.7 g/dL (3.4-5.0); ANION GAP 7 mmol/L (5-15); CALCIUM 7.9 mg/dL (8.5-10.1); CHLORIDE 108 mmol/L (98-107)
[2019-10-11 07:01] VITALS: BP 146/70
[2019-10-11] MEDS: INSULIN LISPRO 100 UNITS/ML, PEN SQ-INSULIN SCH ×4 (07:41→20:29)
[2019-10-11] MEDS: TIMOLOL OPHTH 0.5%, 5ML OP SCH (07:42)
[2019-10-11] MEDS: SENNA/DOCUSATE TABLET PO SCH (07:42)
[2019-10-11] MEDS: PANTOPRAZOLE 40MG TABLET PO SCH (07:44)
[2019-10-11] MEDS: CARVEDILOL 6.25 MG TABLET PO SCH ×2 (07:44→20:30)
[2019-10-11] MEDS: MAGNESIUM SULFATE PMX 2GM/50ML 50 ML IV SCH ×2 (07:44→20:29)
[2019-10-11] MEDS: MAGNESIUM OXIDE 400 MG TABLET PO SCH (09:12)
[2019-10-11] MEDS: HYDROcodone/APAP 5/325 TABLET PO PRN ×2 (11:05→20:30)
[2019-10-11 12:46] VITALS: BP 149/73
[2019-10-11 15:22] VITALS: BP_SYST 129; BP_SYST 133; BP_SYST 145; BP_DIAS 72; BP_DIAS 73; BP_DIAS 77
[2019-10-11 19:36] VITALS: BP 108/68
[2019-10-11] MEDS: ATORVASTATIN 40 MG TABLET PO SCH (20:30)
[2019-10-12] VITALS (12 sets, daily range): BP systolic 84–130; BP diastolic 45–84
[2019-10-12] MEDS: CEFTAZIDIME 1,000 MG in SODIUM CHLORIDE 0.9% 50 ML IV SCH ×2 (01:14→13:30)
[2019-10-12] MEDS: SODIUM CHLORIDE 0.9% 1,000 ML IV SCH ×2 (01:14→17:08)
[2019-10-12] MEDS: HYDROcodone/APAP 5/325 TABLET PO PRN ×3 (01:24→19:34)
[2019-10-12 03:56] LABS: ALBUMIN 2.6 g/dL (3.4-5.0); ANION GAP 4 mmol/L (5-15); CALCIUM 7.8 mg/dL (8.5-10.1); CHLORIDE 108 mmol/L (98-107); CREATININE 0.39 mg/dL (0.55-1.02)
[2019-10-12 03:58] LABS: BASOPHILS # (AUTO) 0.02 x10^3/uL (0-0.1); BASOPHILS % (AUTO) 1 % (0-1); EOSINOPHILS # (AUTO) 0.15 x10^3/uL (0-0.4); EOSINOPHILS % (AUTO) 3 % (1-7); LYMPHOCYTES # (AUTO) 0.94 x10^3/uL (1-3.4); LYMPHOCYTES % (AUTO) 21 % (22-44); MD NO; MEAN CORPUSCULAR HEMOGLOBIN 31.9 pg (27.0-34.8); MEAN CORPUSCULAR HGB CONC 33.8 g/dL (32.4-35.8); MEAN CORPUSCULAR VOLUME 94.5 fL (80-100); MEAN PLATELET VOLUME 6.4 fL (7.4-10.4); MONOCYTES # (AUTO) 0.31 x10^3/uL (0.2-0.8); MONOCYTES % (AUTO) 7 % (2-9); NEUTROPHILS # (AUTO) 3.03 x10^3/uL (1.8-6.8); NEUTROPHILS % (AUTO) 68 % (42-75); PLATELET COUNT 261 x10^3/uL (130-400); RED BLOOD COUNT 2.48 x10^6/uL (3.82-5.3); RED CELL DISTRIBUTION WIDTH 15.2 % (9.6-15.2)
[2019-10-12] MEDS: BUTALB/APAP/CAFFEINE 50MG/325MG/40MG PO PRN ×3 (05:12→22:22)
[2019-10-12] MEDS: ASPIRIN 325 MG TABLET EC PO SCH (05:12)
[2019-10-12] MEDS: LEVOTHYROXINE 150 MCG TABLET PO SCH (05:12)
[2019-10-12] MEDS: INSULIN LISPRO 100 UNITS/ML, PEN SQ-INSULIN SCH ×4 (07:00→19:46)
[2019-10-12] MEDS: PANTOPRAZOLE 40MG TABLET PO SCH (07:30)
[2019-10-12] MEDS: MAGNESIUM OXIDE 400 MG TABLET PO SCH (08:54)
[2019-10-12] MEDS: CARVEDILOL 6.25 MG TABLET PO SCH ×3 (08:56→20:49)
[2019-10-12] MEDS: TIMOLOL OPHTH 0.5%, 5ML OP SCH (08:57)
[2019-10-12] MEDS: SENNA/DOCUSATE TABLET PO SCH (08:57)
[2019-10-12] MEDS: MAGNESIUM SULFATE PMX 2GM/50ML 50 ML IV SCH (09:03)
[2019-10-12] MEDS ORDERED: OMNIPAQUE 350 MG/ML, 100ML BOTTLE ONE (10:49)
[2019-10-12] MEDS ORDERED: PROPOFOL 50 ML ONE ×2 (12:33→13:36)
[2019-10-12] MEDS ORDERED: PHENYLEPHRINE 10 MG/ML ONE (12:57)
[2019-10-12] MEDS ORDERED: PROMETHAZINE 25 MG/ML, 1ML IVPush PRN (13:00)
[2019-10-12] MEDS ORDERED: FENTANYL PF 100 MCG/2ML IV PRN (13:00)
[2019-10-12] MEDS ORDERED: MEPERIDINE/PF 25MG/0.5ML IVPush PRN (13:00)
[2019-10-12] MEDS ORDERED: ACETAMINOPHEN 325 MG TABLET PO PRN (13:00)
[2019-10-12] MEDS ORDERED: EPHEDRINE 50 MG/ML, 1ML IVPush PRN (13:00)
[2019-10-12] MEDS ORDERED: hydrALAzine 20 MG/ML, 1ML IV PRN (13:00)
[2019-10-12] MEDS ORDERED: ONDANSETRON 2MG/ML, 2ML IVPush PRN (13:00)
[2019-10-12] MEDS ORDERED: LABETALOL 5MG/ML, 20ML IV PRN (13:00)
[2019-10-12] MEDS ORDERED: EPHEDRINE 50 MG/ML, 1ML ONE (13:15)
[2019-10-12 15:37] LABS: ALBUMIN 2.5 g/dL (3.4-5.0); ANION GAP 6 mmol/L (5-15); CALCIUM 7.6 mg/dL (8.5-10.1); CHLORIDE 104 mmol/L (98-107)
[2019-10-12 15:41] LABS: ALANINE AMINOTRANSFERASE 51 U/L (12-78); ALKALINE PHOSPHATASE 41 U/L (45-117); BILIRUBIN,TOTAL 0.2 mg/dL (0.2-1.0); CREATININE 0.38 mg/dL (0.55-1.02); TOTAL PROTEIN 5.1 g/dL (6.4-8.2)
[2019-10-12] MEDS ORDERED: GOLYTELY 4,000ML ORAL.SOL PO ONE (18:00)
[2019-10-12] MEDS: ATORVASTATIN 40 MG TABLET PO SCH (20:44)
[2019-10-13 00:46] VITALS: BP 98/58
[2019-10-13] MEDS: HYDROcodone/APAP 5/325 TABLET PO PRN ×4 (00:48→21:45)
[2019-10-13] MEDS: CEFTAZIDIME 1,000 MG in SODIUM CHLORIDE 0.9% 50 ML IV SCH (01:34)
[2019-10-13] MEDS: SODIUM CHLORIDE 0.9% 1,000 ML IV SCH ×3 (01:34→21:52)
[2019-10-13] MEDS: ASPIRIN 325 MG TABLET EC PO SCH (04:40)
[2019-10-13] MEDS: LEVOTHYROXINE 150 MCG TABLET PO SCH (04:49)
[2019-10-13] MEDS: BUTALB/APAP/CAFFEINE 50MG/325MG/40MG PO PRN ×2 (04:49→12:21)
[2019-10-13 06:33] LABS: BASOPHILS # (AUTO) 0.02 x10^3/uL (0-0.1); BASOPHILS % (AUTO) 0 % (0-1); EOSINOPHILS # (AUTO) 0.04 x10^3/uL (0-0.4); EOSINOPHILS % (AUTO) 1 % (1-7); LYMPHOCYTES # (AUTO) 1.01 x10^3/uL (1-3.4); LYMPHOCYTES % (AUTO) 17 % (22-44); MD NO; MEAN CORPUSCULAR HEMOGLOBIN 31.1 pg (27.0-34.8); MEAN CORPUSCULAR HGB CONC 33.8 g/dL (32.4-35.8); MEAN CORPUSCULAR VOLUME 92.1 fL (80-100); MEAN PLATELET VOLUME 6.6 fL (7.4-10.4); MONOCYTES # (AUTO) 0.41 x10^3/uL (0.2-0.8); MONOCYTES % (AUTO) 7 % (2-9); NEUTROPHILS # (AUTO) 4.32 x10^3/uL (1.8-6.8); NEUTROPHILS % (AUTO) 75 % (42-75); PLATELET COUNT 164 x10^3/uL (130-400); RED BLOOD COUNT 2.55 x10^6/uL (3.82-5.3); RED CELL DISTRIBUTION WIDTH 15.3 % (9.6-15.2)
[2019-10-13 06:35] VITALS: BP 127/61
[2019-10-13 08:48] LABS: INTERNATIONAL NORMALIZED RATIO 1.01 (0.93-1.1); PROTHROMBIN TIME 10.7 Seconds (9.6-11.5)
[2019-10-13] MEDS: INSULIN LISPRO 100 UNITS/ML, PEN SQ-INSULIN SCH ×4 (09:44→21:45)
[2019-10-13] MEDS: CARVEDILOL 6.25 MG TABLET PO SCH ×2 (09:44→21:46)
[2019-10-13] MEDS: PANTOPRAZOLE 40MG TABLET PO SCH (09:44)
[2019-10-13] MEDS: MAGNESIUM OXIDE 400 MG TABLET PO SCH (09:44)
[2019-10-13] MEDS: SENNA/DOCUSATE TABLET PO SCH (09:45)
[2019-10-13] MEDS: TIMOLOL OPHTH 0.5%, 5ML OP SCH (09:48)
[2019-10-13 15:25] VITALS: BP 119/64
[2019-10-13 18:58] VITALS: BP 138/72
[2019-10-13] MEDS: ATORVASTATIN 40 MG TABLET PO SCH (21:46)
[2019-10-14] VITALS (11 sets, daily range): BP systolic 106–169; BP diastolic 66–81
[2019-10-14] MEDS: LEVOTHYROXINE 150 MCG TABLET PO SCH (05:05)
[2019-10-14] MEDS: HYDROcodone/APAP 5/325 TABLET PO PRN ×2 (05:07→20:08)
[2019-10-14] MEDS: INSULIN LISPRO 100 UNITS/ML, PEN SQ-INSULIN SCH ×5 (08:40→20:07)
[2019-10-14] MEDS: CARVEDILOL 6.25 MG TABLET PO SCH ×2 (08:46→20:08)
[2019-10-14] MEDS: PANTOPRAZOLE 40MG TABLET PO SCH (08:46)
[2019-10-14] MEDS: MAGNESIUM OXIDE 400 MG TABLET PO SCH (08:46)
[2019-10-14] MEDS: SENNA/DOCUSATE TABLET PO SCH (08:49)
[2019-10-14] MEDS: TIMOLOL OPHTH 0.5%, 5ML OP SCH (08:49)
[2019-10-14] MEDS: SODIUM CHLORIDE 0.9% 1,000 ML IV SCH ×2 (12:10→21:13)
[2019-10-14 12:27] LABS: ALBUMIN 2.6 g/dL (3.4-5.0); ANION GAP 6 mmol/L (5-15); CALCIUM 7.8 mg/dL (8.5-10.1); CHLORIDE 111 mmol/L (98-107); CREATININE 0.37 mg/dL (0.55-1.02)
[2019-10-14] MEDS: BUTALB/APAP/CAFFEINE 50MG/325MG/40MG PO PRN (16:34)
[2019-10-14] MEDS: ATORVASTATIN 40 MG TABLET PO SCH (20:07)
[2019-10-14] MEDS ORDERED: OMNIPAQUE 350 MG/ML, 100ML BOTTLE ONE (22:32)
[2019-10-15] VITALS (9 sets, daily range): BP systolic 95–150; BP diastolic 47–69
[2019-10-15] MEDS: LEVOTHYROXINE 150 MCG TABLET PO SCH (05:35)
[2019-10-15] MEDS: BUTALB/APAP/CAFFEINE 50MG/325MG/40MG PO PRN ×2 (05:35→11:56)
[2019-10-15] MEDS: SODIUM CHLORIDE 0.9% 1,000 ML IV SCH ×2 (05:36→18:17)
[2019-10-15] MEDS: SENNA/DOCUSATE TABLET PO SCH (08:40)
[2019-10-15] MEDS: HYDROcodone/APAP 5/325 TABLET PO PRN ×2 (08:43→17:05)
[2019-10-15] MEDS: CARVEDILOL 6.25 MG TABLET PO SCH ×2 (08:45→20:50)
[2019-10-15] MEDS: PANTOPRAZOLE 40MG TABLET PO SCH (08:46)
[2019-10-15] MEDS: MAGNESIUM OXIDE 400 MG TABLET PO SCH (08:47)
[2019-10-15] MEDS: TIMOLOL OPHTH 0.5%, 5ML OP SCH (08:48)
[2019-10-15] MEDS ORDERED: MOVIPREP POWDER 1 PREP KIT PO ONE (12:00)
[2019-10-15] MEDS: INSULIN LISPRO 100 UNITS/ML, PEN SQ-INSULIN SCH ×3 (13:20→20:51)
[2019-10-15] MEDS: ATORVASTATIN 40 MG TABLET PO SCH (20:51)
[2019-10-16 01:18] VITALS: BP 146/79
[2019-10-16] MEDS: SODIUM CHLORIDE 0.9% 1,000 ML IV SCH (05:00)
[2019-10-16] MEDS: LEVOTHYROXINE 150 MCG TABLET PO SCH (06:00)
[2019-10-16 06:18] VITALS: BP 145/74
[2019-10-16] MEDS ORDERED: MOVIPREP POWDER 1 PREP KIT PO ONE (06:30)
[2019-10-16] MEDS: INSULIN LISPRO 100 UNITS/ML, PEN SQ-INSULIN SCH ×4 (07:00→20:08)
[2019-10-16 07:08] LABS: ALANINE AMINOTRANSFERASE 36 U/L (12-78); ALBUMIN 2.2 g/dL (3.4-5.0); ANION GAP 7 mmol/L (5-15); CALCIUM 7.4 mg/dL (8.5-10.1); CHLORIDE 116 mmol/L (98-107); CREATININE 0.34 mg/dL (0.55-1.02)
[2019-10-16 07:10] LABS: ALKALINE PHOSPHATASE 36 U/L (45-117); BILIRUBIN,TOTAL 0.4 mg/dL (0.2-1.0); TOTAL PROTEIN 4.4 g/dL (6.4-8.2)
[2019-10-16] MEDS: CARVEDILOL 6.25 MG TABLET PO SCH ×2 (08:33→20:07)
[2019-10-16] MEDS: PANTOPRAZOLE 40MG TABLET PO SCH (08:33)
[2019-10-16] MEDS: TIMOLOL OPHTH 0.5%, 5ML OP SCH (08:33)
[2019-10-16] MEDS: SENNA/DOCUSATE TABLET PO SCH (08:33)
[2019-10-16] MEDS: MAGNESIUM OXIDE 400 MG TABLET PO SCH (08:33)
[2019-10-16] MEDS ORDERED: FENTANYL PF 100 MCG/2ML ONE (09:19)
[2019-10-16] MEDS ORDERED: MIDAZOLAM 1 MG/ML, 2ML ONE (09:19)
[2019-10-16] MEDS ORDERED: LABETALOL 5MG/ML, 20ML IV PRN (09:30)
[2019-10-16] MEDS ORDERED: FENTANYL PF 100 MCG/2ML IV PRN (09:30)
[2019-10-16] MEDS ORDERED: ONDANSETRON 2MG/ML, 2ML IVPush PRN (09:30)
[2019-10-16] MEDS ORDERED: hydrALAzine 20 MG/ML, 1ML IV PRN (09:30)
[2019-10-16] MEDS ORDERED: morphine SULFATE 10 MG/ML, 1ML IVPush PRN (09:30)
[2019-10-16] MEDS ORDERED: PROMETHAZINE 25 MG/ML, 1ML IVPush PRN (09:30)
[2019-10-16] MEDS ORDERED: POTASSIUM CHLORIDE 40 MEQ in SODIUM CHLORIDE 0.9% 500 ML IV ONE (09:30)
[2019-10-16] MEDS ORDERED: PROPOFOL 10 MG/ML, 20ML ONE (09:42)
[2019-10-16 14:51] VITALS: BP 142/89
[2019-10-16] MEDS: LACTATED RINGERS 1,000 ML IV SCH (16:13)
[2019-10-16 19:34] VITALS: BP 117/61
[2019-10-16] MEDS: ATORVASTATIN 40 MG TABLET PO SCH (20:07)
[2019-10-16] MEDS: HYDROcodone/APAP 5/325 TABLET PO PRN (20:07)
[2019-10-17] VITALS (10 sets, daily range): BP systolic 101–147; BP diastolic 54–77
[2019-10-17] MEDS: MELATONIN 5 MG TABLET PO PRN (00:29)
[2019-10-17] MEDS: HYDROcodone/APAP 5/325 TABLET PO PRN ×4 (00:30→19:13)
[2019-10-17] MEDS: LACTATED RINGERS 1,000 ML IV SCH ×2 (02:14→12:56)
[2019-10-17] MEDS: LEVOTHYROXINE 150 MCG TABLET PO SCH (05:37)
[2019-10-17] MEDS: INSULIN LISPRO 100 UNITS/ML, PEN SQ-INSULIN SCH ×4 (07:00→21:44)
[2019-10-17 07:50] LABS: ALANINE AMINOTRANSFERASE 34 U/L (12-78); ANION GAP 7 mmol/L (5-15); CALCIUM 7.1 mg/dL (8.5-10.1); CHLORIDE 115 mmol/L (98-107); CREATININE 0.33 mg/dL (0.55-1.02)
[2019-10-17 07:52] LABS: ALKALINE PHOSPHATASE 35 U/L (45-117); BILIRUBIN,TOTAL 0.6 mg/dL (0.2-1.0)
[2019-10-17] MEDS: PANTOPRAZOLE 40MG TABLET PO SCH (08:49)
[2019-10-17] MEDS: CARVEDILOL 6.25 MG TABLET PO SCH ×2 (08:49→22:00)
[2019-10-17] MEDS: TIMOLOL OPHTH 0.5%, 5ML OP SCH (08:49)
[2019-10-17] MEDS: SENNA/DOCUSATE TABLET PO SCH (09:00)
[2019-10-17] MEDS: CALCIUM CARBONATE 500 MG TAB.CHEW PO SCH ×2 (10:59→22:00)
[2019-10-17] MEDS: POTASSIUM CHLORIDE 20 MEQ TAB.ER.PRT PO SCH (17:37)
[2019-10-17] MEDS: ATORVASTATIN 40 MG TABLET PO SCH (21:59)
[2019-10-18] MEDS: MELATONIN 5 MG TABLET PO PRN (00:41)
[2019-10-18] MEDS: HYDROcodone/APAP 5/325 TABLET PO PRN ×3 (00:42→18:31)
[2019-10-18 00:43] VITALS: BP 129/72
[2019-10-18] MEDS: LEVOTHYROXINE 150 MCG TABLET PO SCH (05:56)
[2019-10-18] MEDS: LACTATED RINGERS 1,000 ML IV SCH ×2 (06:01→18:27)
[2019-10-18] MEDS: INSULIN LISPRO 100 UNITS/ML, PEN SQ-INSULIN SCH ×4 (06:45→20:38)
[2019-10-18 06:47] VITALS: BP 141/59
[2019-10-18] MEDS: SENNA/DOCUSATE TABLET PO SCH ×2 (09:00→10:41)
[2019-10-18] MEDS: CARVEDILOL 6.25 MG TABLET PO SCH ×2 (10:40→20:39)
[2019-10-18] MEDS: POTASSIUM CHLORIDE 20 MEQ TAB.ER.PRT PO SCH (10:40)
[2019-10-18] MEDS: PANTOPRAZOLE 40MG TABLET PO SCH (10:40)
[2019-10-18] MEDS: TIMOLOL OPHTH 0.5%, 5ML OP SCH (10:40)
[2019-10-18] MEDS: CALCIUM CARBONATE 500 MG TAB.CHEW PO SCH ×2 (10:41→20:39)
[2019-10-18 12:13] VITALS: BP 121/66
[2019-10-18 13:27] LABS: ALBUMIN 2.4 g/dL (3.4-5.0); ANION GAP 6 mmol/L (5-15); CALCIUM 7.7 mg/dL (8.5-10.1); CHLORIDE 110 mmol/L (98-107)
[2019-10-18 13:29] LABS: ALANINE AMINOTRANSFERASE 38 U/L (12-78); ALKALINE PHOSPHATASE 40 U/L (45-117); BILIRUBIN,TOTAL 0.5 mg/dL (0.2-1.0); CREATININE 0.39 mg/dL (0.55-1.02); TOTAL PROTEIN 4.6 g/dL (6.4-8.2)
[2019-10-18 19:07] VITALS: BP 155/73
[2019-10-18 20:11] LABS: BASOPHILS # (AUTO) 0.02 x10^3/uL (0-0.1); BASOPHILS % (AUTO) 0 % (0-1); EOSINOPHILS # (AUTO) 0.14 x10^3/uL (0-0.4); EOSINOPHILS % (AUTO) 3 % (1-7); LYMPHOCYTES # (AUTO) 0.89 x10^3/uL (1-3.4); LYMPHOCYTES % (AUTO) 20 % (22-44); MD NO; MEAN CORPUSCULAR HEMOGLOBIN 30.4 pg (27.0-34.8); MEAN CORPUSCULAR HGB CONC 33.3 g/dL (32.4-35.8); MEAN CORPUSCULAR VOLUME 91.4 fL (80-100); MEAN PLATELET VOLUME 6.1 fL (7.4-10.4); MONOCYTES # (AUTO) 0.37 x10^3/uL (0.2-0.8); MONOCYTES % (AUTO) 8 % (2-9); NEUTROPHILS # (AUTO) 2.98 x10^3/uL (1.8-6.8); NEUTROPHILS % (AUTO) 68 % (42-75); PLATELET COUNT 182 x10^3/uL (130-400); RED BLOOD COUNT 2.86 x10^6/uL (3.82-5.3); RED CELL DISTRIBUTION WIDTH 14.5 % (9.6-15.2)
[2019-10-18] MEDS: ATORVASTATIN 40 MG TABLET PO SCH (20:39)
[2019-10-19] MEDS: HYDROcodone/APAP 5/325 TABLET PO PRN ×2 (00:43→06:50)
[2019-10-19] MEDS: LACTATED RINGERS 1,000 ML IV SCH (01:00)
[2019-10-19 01:42] VITALS: BP 132/67
[2019-10-19] MEDS: LEVOTHYROXINE 150 MCG TABLET PO SCH (05:33)
[2019-10-19 06:10] LABS: BASOPHILS # (AUTO) 0.02 x10^3/uL (0-0.1); BASOPHILS % (AUTO) 1 % (0-1); EOSINOPHILS # (AUTO) 0.17 x10^3/uL (0-0.4); EOSINOPHILS % (AUTO) 5 % (1-7); LYMPHOCYTES % (AUTO) 22 % (22-44); MD NO; MEAN CORPUSCULAR HGB CONC 31.8 g/dL (32.4-35.8); MEAN CORPUSCULAR VOLUME 91.1 fL (80-100); MEAN PLATELET VOLUME 6.3 fL (7.4-10.4); MONOCYTES # (AUTO) 0.36 x10^3/uL (0.2-0.8); MONOCYTES % (AUTO) 10 % (2-9); NEUTROPHILS # (AUTO) 2.28 x10^3/uL (1.8-6.8); NEUTROPHILS % (AUTO) 63 % (42-75); PLATELET COUNT 193 x10^3/uL (130-400); RED BLOOD COUNT 2.89 x10^6/uL (3.82-5.3); RED CELL DISTRIBUTION WIDTH 14.8 % (9.6-15.2)
[2019-10-19 06:19] LABS: ALBUMIN 2.2 g/dL (3.4-5.0); ANION GAP 9 mmol/L (5-15); CALCIUM 7.5 mg/dL (8.5-10.1); CHLORIDE 109 mmol/L (98-107)
[2019-10-19 06:26] LABS: ALANINE AMINOTRANSFERASE 32 U/L (12-78); ALKALINE PHOSPHATASE 37 U/L (45-117); BILIRUBIN,TOTAL 0.4 mg/dL (0.2-1.0); CREATININE 0.27 mg/dL (0.55-1.02); TOTAL PROTEIN 4.5 g/dL (6.4-8.2)
[2019-10-19 06:56] VITALS: BP 146/79
[2019-10-19] MEDS: INSULIN LISPRO 100 UNITS/ML, PEN SQ-INSULIN SCH ×2 (07:00→11:00)
[2019-10-19] MEDS: TIMOLOL OPHTH 0.5%, 5ML OP SCH (09:00)
[2019-10-19] MEDS: PANTOPRAZOLE 40MG TABLET PO SCH (09:52)
[2019-10-19] MEDS: CALCIUM CARBONATE 500 MG TAB.CHEW PO SCH (09:52)
[2019-10-19] MEDS: SENNA/DOCUSATE TABLET PO SCH (09:52)
[2019-10-19] MEDS: CARVEDILOL 6.25 MG TABLET PO SCH (09:52)
[2019-10-19] MEDS ORDERED: PANT40TA5 PO (10:58)
[2019-10-19] MEDS ORDERED: POTA20PA25 PO (10:59)
[2019-10-19 12:13] VITALS: BP 159/77
== END 2019-10-19 12:10 | disposition home or self-care (01) | DRG 640 ==
LOC: ED 15:30 → EDIP 15:31 → ED 15:41 → 4WST 19:18 → DCLOUNGE 10-19 12:04
PROVIDERS: ADMIT Hospitalist; ATTEND Internal Medicine
PROC: 30233N1 Transfusion of Nonautologous Red Blood Cells into Peripheral Vein, Percutaneous Approach (ICD-10-PCS; 2019-10-07)
PROC: 0DJD8ZZ Inspection of Lower Intestinal Tract, Via Natural or Artificial Opening Endoscopic (ICD-10-PCS; principal; 2019-10-07 08:00)
PROC: 0DJD8ZZ Inspection of Lower Intestinal Tract, Via Natural or Artificial Opening Endoscopic (ICD-10-PCS; 2019-10-10)
PROC: 0DJD8ZZ Inspection of Lower Intestinal Tract, Via Natural or Artificial Opening Endoscopic (ICD-10-PCS; 2019-10-12)
PROC: 0DJ08ZZ Inspection of Upper Intestinal Tract, Via Natural or Artificial Opening Endoscopic (ICD-10-PCS; 2019-10-12)
PROC: 0DJD8ZZ Inspection of Lower Intestinal Tract, Via Natural or Artificial Opening Endoscopic (ICD-10-PCS; 2019-10-16)
DX: E87.1 Hypo-osmolality and hyponatremia (principal); K57.31 Diverticulosis of large intestine without perforation or abscess with bleeding; N39.0 Urinary tract infection, site not specified; D62 Acute posthemorrhagic anemia; K44.9 Diaphragmatic hernia without obstruction or gangrene; R27.0 Ataxia, unspecified; E78.5 Hyperlipidemia, unspecified; E11.9 Type 2 diabetes mellitus without complications; E03.9 Hypothyroidism, unspecified; I35.1 Nonrheumatic aortic (valve) insufficiency; E83.42 Hypomagnesemia; R51 Headache; I50.9 Heart failure, unspecified; I11.0 Hypertensive heart disease with heart failure; K64.8 Other hemorrhoids; B96.5 Pseudomonas (aeruginosa) (mallei) (pseudomallei) as the cause of diseases classified elsewhere; B96.89 Other specified bacterial agents as the cause of diseases classified elsewhere; B96.20 Unspecified Escherichia coli [E. coli] as the cause of diseases classified elsewhere; I95.9 Hypotension, unspecified; G89.29 Other chronic pain; M53.3 Sacrococcygeal disorders, not elsewhere classified; R29.6 Repeated falls; M25.552 Pain in left hip; M54.5 Low back pain; R23.1 Pallor; K64.4 Residual hemorrhoidal skin tags; Z79.82 Long term (current) use of aspirin; Z79.84 Long term (current) use of oral hypoglycemic drugs; Z79.899 Other long term (current) drug therapy; Z83.3 Family history of diabetes mellitus; Z86.73 Personal history of transient ischemic attack (TIA), and cerebral infarction without residual deficits; Z87.19 Personal history of other diseases of the digestive system; Z91.14 Patient's other noncompliance with medication regimen; Z20.828 Contact with and (suspected) exposure to other viral communicable diseases; Z96.642 Presence of left artificial hip joint; Z98.1 Arthrodesis status; Z88.6 Allergy status to analgesic agent; Z88.5 Allergy status to narcotic agent; Z88.0 Allergy status to penicillin
CPT/HCPCS: 36415; 70450; 70544; 70553; 71046; 72125; 74174; 78278; 80048; 80053; 80061; 80069; 81001; 82962; 83036; 83735; 83930; 83935; 84295; 84300; 84443; 84484; 85014; 85018; 85025; 85610; 85651; 86850; 86900; 86923; 87077; 87086; 87186; 87635; 93005; G0378; J0696; J0713; J1650; J2250; J2405; J2704; J3010; J3480; Q9967; A9560; A9575; C9113; J1815; J2370; J3475; J7030; J7040; J7120; P9016

== ENCOUNTER 2019-10-26 09:50 | Observation (INO) | payer MEDICARE, MEDICAID ==
[~2019-10-26] VITALS: Ht 162.6 cm; Wt 69.3 kg
[~2019-10-26 09:50] MED LIST changes: +ALEVE; +ATOR40TA78 PO; +CARV6.252 PO; +LEVO150T PO; +METH500T7 PO; +OMEP20CA20 PO; +PANT40TA6 PO; +POTA20PA25 PO; +TIMO5DRO5 OP; +TYLENOL; +VALS160T3 PO; +VITAMIN D3
[2019-10-26] MEDS ORDERED: SODIUM CHLORIDE FLUSH 10ML SYR IVF ONE (10:30)
[2019-10-26] MEDS ORDERED: ONDANSETRON 2MG/ML, 2ML IVPush ONE (10:30)
[2019-10-26] MEDS ORDERED: ASPIRIN 81 MG TABLET CHEW PO ONE (10:30)
[2019-10-26 10:31] LABS: BASOPHILS # (AUTO) 0.02 x10^3/uL (0-0.1); BASOPHILS % (AUTO) 0 % (0-1); EOSINOPHILS # (AUTO) 0.17 x10^3/uL (0-0.4); EOSINOPHILS % (AUTO) 4 % (1-7); LYMPHOCYTES % (AUTO) 14 % (22-44); MD NO; MEAN CORPUSCULAR HEMOGLOBIN 28.4 pg (27.0-34.8); MEAN CORPUSCULAR HGB CONC 32.1 g/dL (32.4-35.8); MEAN PLATELET VOLUME 6.3 fL (7.4-10.4); MONOCYTES # (AUTO) 0.41 x10^3/uL (0.2-0.8); MONOCYTES % (AUTO) 8 % (2-9); NEUTROPHILS # (AUTO) 3.63 x10^3/uL (1.8-6.8); NEUTROPHILS % (AUTO) 74 % (42-75); PLATELET COUNT 326 x10^3/uL (130-400); RED BLOOD COUNT 3.09 x10^6/uL (3.82-5.3); RED CELL DISTRIBUTION WIDTH 15.6 % (9.6-15.2)
[2019-10-26] MEDS ORDERED: ASPIRIN 81 MG TABLET CHEW ONE (10:37)
[2019-10-26] MEDS ORDERED: ONDANSETRON 2MG/ML, 2ML ONE (10:37)
--- NOTE | 2019-10-26 10:45 | NUR ---
pt to ed w c/o cp, l arm pain, dizzy, sob, incr bilat leg swelling since last night. hx mi. ekg in triage. sr on monitor. recent admission here for divertic w/ gib, transfusions, stopped asa/nsaids, supposed to have surg 6 wk from d/c. pt a&ox4 gcs 15. appears diaphoretic but is from face cream. vss. bgl wnl. pa in room for eval. call larsen. as
[2019-10-26 10:48] LABS: ALANINE AMINOTRANSFERASE 19 U/L (12-78); ALBUMIN 2.5 g/dL (3.4-5.0); ANION GAP 9 mmol/L (5-15); CALCIUM 7.6 mg/dL (8.5-10.1); CHLORIDE 113 mmol/L (98-107); CREATININE 0.43 mg/dL (0.55-1.02)
[2019-10-26 10:52] LABS: ALKALINE PHOSPHATASE 47 U/L (45-117); BILIRUBIN,TOTAL 0.5 mg/dL (0.2-1.0); TOTAL PROTEIN 5.4 g/dL (6.4-8.2); TROPONIN I 0.041 ng/mL (0.000-0.045)
--- NOTE | 2019-10-26 11:28 | NUR ---
piv est pt w/ v fragile skin. cleaned 1 bm. appears mucus/yellow, sts incontinent of diarrhea since hospitalization, denies recent abx use. sample obtained and walked to lab. pa notified. repositioned. pt sts she feels "much better" denies pain. ctm. as
[2019-10-26 12:24] LABS: CLOSTRIDIUM DIFFICILE ANTIGEN NEGATIVE; CLOSTRIDIUM DIFFICILE TOXIN NEGATIVE (Negative)
--- NOTE | 2019-10-26 12:33 | NUR ---
sahm in room for eval plan admit. as
[2019-10-26] MEDS ORDERED: SODIUM CHLORIDE 0.9% 1,000 ML IV ONE (12:57)
[2019-10-26] MEDS ORDERED: SODIUM CHLORIDE FLUSH 10ML SYR IVF PRN (13:00)
--- NOTE | 2019-10-26 13:41 | NUR ---
tele hold. med bed ordered. given water, repositioned, vss. as
--- NOTE | 2019-10-26 14:22 | NUR ---
admitting hospitalist in room to eval pt. pt moved to hospital bed. vss. son at bedside. no needs at this time. as
--- NOTE | 2019-10-26 14:23 | NUR ---
admit for chest pain and anemia. h/h 8.8. as
[2019-10-26] MEDS ORDERED: ONDANSETRON ODT 4 MG PO PRN (14:30)
[2019-10-26] MEDS ORDERED: ONDANSETRON 2MG/ML, 2ML IVPush PRN (14:30)
[2019-10-26] MEDS ORDERED: POLYETHYLENE GLYCOL 17 GM PACKET PO PRN (14:30)
[2019-10-26] MEDS ORDERED: DOCUSATE 100 MG CAPSULE PO PRN (14:30)
[2019-10-26] MEDS ORDERED: POTASSIUM CHLORIDE 20 MEQ TAB.ER.PRT PO ONE (14:30)
[2019-10-26] MEDS ORDERED: POTASSIUM CHLORIDE 20 MEQ TAB.ER.PRT ONE (14:44)
--- NOTE | 2019-10-26 15:21 | NUR ---
report to az bernal as
[2019-10-26] MEDS: INSULIN LISPRO 100 UNITS/ML, PEN SQ-INSULIN SCH ×2 (16:00→20:44)
[2019-10-26 18:07] LABS: TROPONIN I 0.033 ng/mL (0.000-0.045)
[2019-10-26 20:10] VITALS: BP 135/81
[2019-10-26] MEDS: CARVEDILOL 6.25 MG TABLET PO SCH (20:43)
[2019-10-26] MEDS: ACETAMINOPHEN 325 MG TABLET PO PRN (20:43)
[2019-10-26 23:22] LABS: TROPONIN I 0.048 ng/mL (0.000-0.045)
[2019-10-27 03:21] VITALS: BP 128/76
[2019-10-27] MEDS ORDERED: ASPIRIN 81 MG TABLET EC PO SCH (06:00)
[2019-10-27 06:13] LABS: BASOPHILS # (AUTO) 0.03 x10^3/uL (0-0.1); BASOPHILS % (AUTO) 1 % (0-1); EOSINOPHILS # (AUTO) 0.24 x10^3/uL (0-0.4); EOSINOPHILS % (AUTO) 7 % (1-7); LYMPHOCYTES # (AUTO) 0.86 x10^3/uL (1-3.4); LYMPHOCYTES % (AUTO) 24 % (22-44); MD NO; MEAN CORPUSCULAR HEMOGLOBIN 28.9 pg (27.0-34.8); MEAN CORPUSCULAR HGB CONC 32.5 g/dL (32.4-35.8); MEAN PLATELET VOLUME 6.4 fL (7.4-10.4); MONOCYTES # (AUTO) 0.42 x10^3/uL (0.2-0.8); MONOCYTES % (AUTO) 12 % (2-9); NEUTROPHILS # (AUTO) 2.05 x10^3/uL (1.8-6.8); NEUTROPHILS % (AUTO) 57 % (42-75); PLATELET COUNT 323 x10^3/uL (130-400); RED BLOOD COUNT 2.93 x10^6/uL (3.82-5.3); RED CELL DISTRIBUTION WIDTH 15.2 % (9.6-15.2)
[2019-10-27 06:31] LABS: CHLORIDE 111 mmol/L (98-107)
[2019-10-27 06:37] VITALS: BP 144/79
[2019-10-27 06:39] LABS: ALANINE AMINOTRANSFERASE 19 U/L (12-78); ALBUMIN 2.1 g/dL (3.4-5.0); ALKALINE PHOSPHATASE 48 U/L (45-117); ANION GAP 9 mmol/L (5-15); BILIRUBIN,TOTAL 0.5 mg/dL (0.2-1.0); CALCIUM 7.6 mg/dL (8.5-10.1); CREATININE 0.32 mg/dL (0.55-1.02); TOTAL PROTEIN 5.1 g/dL (6.4-8.2)
[2019-10-27] MEDS: INSULIN LISPRO 100 UNITS/ML, PEN SQ-INSULIN SCH ×3 (07:00→16:00)
[2019-10-27] MEDS ORDERED: PANTOPRAZOLE 40MG TABLET PO SCH (07:30)
[2019-10-27] MEDS ORDERED: REGADENOSON 0.4 MG/5 ML SYRINGE ONE (08:42)
[2019-10-27 08:44] VITALS: BP 126/77
[2019-10-27] MEDS: CARVEDILOL 6.25 MG TABLET PO SCH (08:47)
[2019-10-27] MEDS ORDERED: LEVOTHYROXINE 150 MCG TABLET PO SCH (09:00)
[2019-10-27] MEDS ORDERED: TIMOLOL OPHTH 0.5%, 5ML OP SCH (09:00)
[2019-10-27] MEDS ORDERED: METHOCARBAMOL 500 MG TABLET PO SCH (09:00)
[2019-10-27] MEDS ORDERED: ATORVASTATIN 40 MG TABLET PO SCH (09:00)
[2019-10-27] MEDS ORDERED: VALSARTAN 160 MG TABLET PO SCH (09:00)
[2019-10-27 13:23] VITALS: BP 126/76
[2019-10-27] MEDS: ACETAMINOPHEN 325 MG TABLET PO PRN (15:14)
== END 2019-10-27 18:34 | disposition home or self-care (01) ==
LOC: ED 11:03 → EDIP 12:57 → INTOOBSV 12:57 → OBSVTOIN 12:57 → 5SO 16:06
PROVIDERS: ADMIT Family Medicine; ATTEND Family Medicine
DX: R07.89 Other chest pain (principal); K57.91 Diverticulosis of intestine, part unspecified, without perforation or abscess with bleeding; I25.110 Atherosclerotic heart disease of native coronary artery with unstable angina pectoris; M79.602 Pain in left arm; E87.6 Hypokalemia; R19.7 Diarrhea, unspecified; D50.0 Iron deficiency anemia secondary to blood loss (chronic); I34.0 Nonrheumatic mitral (valve) insufficiency; E11.9 Type 2 diabetes mellitus without complications; I10 Essential (primary) hypertension; E78.5 Hyperlipidemia, unspecified; R27.0 Ataxia, unspecified; G89.29 Other chronic pain; R51 Headache; E03.9 Hypothyroidism, unspecified; H40.9 Unspecified glaucoma; I25.2 Old myocardial infarction; Z88.0 Allergy status to penicillin; Z79.899 Other long term (current) drug therapy; Z79.82 Long term (current) use of aspirin; Z79.84 Long term (current) use of oral hypoglycemic drugs; Z86.73 Personal history of transient ischemic attack (TIA), and cerebral infarction without residual deficits; Z96.642 Presence of left artificial hip joint; Z87.440 Personal history of urinary (tract) infections
CPT/HCPCS: 36415; 71045; 78452; 80053; 82962; 84484; 85025; 87324; 89055; 93005; 93017; 93971; 99285; A9502; G0378; J2785

== ENCOUNTER 2020-04-25 14:14 | Emergency (ER) | payer MEDICARE, MEDICAID ==
[~2020-04-25] VITALS: Ht 157.5 cm; Wt 72.8 kg
[~2020-04-25 14:14] MED LIST changes: +HYDR25SU3 PR; +PSYL3.4P8 PO
--- NOTE | 2020-04-25 15:21 | NUR ---
Pedro jimenez in [facility] - 04/25/20 at 1543 by CHRISTY disc ruler operator: pt moved rom lobby to room 28
--- NOTE | 2020-04-25 15:47 | NUR ---
vp securities: pt from lobby to room 22
--- NOTE | 2020-04-25 16:00 | NUR ---
Pt reports hx of thyroid surgery, stroke, blood clot in brain, broken left hip and surgery, heart attack.
--- NOTE | 2020-04-25 16:50 | NUR ---
Pt's son called- updated son on plan. He said to call him back at [phone]
--- NOTE | 2020-04-25 17:25 | NUR ---
Pt ambulating to bathroom, 1 person assist.
[2020-04-25 18:27] LABS: MEAN CORPUSCULAR HEMOGLOBIN 21.2 pg (27.0-34.8); MEAN CORPUSCULAR HGB CONC 31.3 g/dL (32.4-35.8); MEAN PLATELET VOLUME 6.1 fL (7.4-10.4); PLATELET COUNT 440 x10^3/uL (130-400)
[2020-04-25 18:38] LABS: ALBUMIN 3.9 g/dL (3.4-5.0); ANION GAP 10 mmol/L (5-15); CALCIUM 8.9 mg/dL (8.5-10.1); CHLORIDE 102 mmol/L (98-107); CREATININE 0.77 mg/dL (0.55-1.02)
[2020-04-25 19:00] LABS: MD YES
[2020-04-25 19:05] VITALS: BP 144/50
[2020-04-25 19:08] LABS: BASOS#(MANUAL) 0.04 x10^3/uL (0-0.1); BASOS% (MANUAL) 1 % (0-1); EOS#(MANUAL) 0.11 x10^3/uL (0.0-0.4); EOS% (MANUAL) 3 % (1-7); LYMPH#(MANUAL) 1.48 x10^3/uL (1-3.4); LYMPHS% (MANUAL) 40 % (22-44); MONOS#(MANUAL) 0.19 x10^3/uL (0.3-2.7); MONOS% (MANUAL) 5 % (2-9); SEG#(MANUAL) 1.89 x10^3/uL (1.8-6.8); SEGS% (MANUAL) 51 % (42-75)
[2020-04-25 19:09] LABS: <PLATELET ESTIMATE> INCREASED
[2020-04-25 19:10] LABS: <PLT MORPHOLOGY> NORMAL PLT MORPH
[2020-04-25 19:11] LABS: ANISOCYTOSIS 1+; ECHINOCYTES 1+; HYPOCHROMIA 2+; MICROCYTOSIS 1+
== END 2020-04-25 19:17 | disposition home or self-care (01) ==
LOC: ED 15:30
DX: I12.9 Hypertensive chronic kidney disease with stage 1 through stage 4 chronic kidney disease, or unspecified chronic kidney disease (principal); E11.22 Type 2 diabetes mellitus with diabetic chronic kidney disease; N18.30 Chronic kidney disease, stage 3 unspecified; D63.1 Anemia in chronic kidney disease; R94.31 Abnormal electrocardiogram [ECG] [EKG]; I25.2 Old myocardial infarction; Z86.73 Personal history of transient ischemic attack (TIA), and cerebral infarction without residual deficits; Z86.39 Personal history of other endocrine, nutritional and metabolic disease; Z90.49 Acquired absence of other specified parts of digestive tract
CPT/HCPCS: 36415; 80048; 82040; 85025; 93005; 99284

== ENCOUNTER 2020-08-03 14:35 | Observation (INO) | payer MEDICARE, MEDICAID ==
[~2020-08-03] VITALS: Ht 162.6 cm; Wt 75.3 kg
[~2020-08-03 14:35] MED LIST changes: +ASPI-1026 PO; -ASPI-650 PO; +FERR324T5 PO; +METH-639 PO; -METH500T7 PO
--- NOTE | 2020-08-03 16:35 | NUR ---
TENSION WORKER: PT TO ROOM FROM LOBBY
--- NOTE | 2020-08-03 16:53 | NUR ---
PT PRESENTS TO ED WITH C/O HEADACHE ON R SIDE OF HEAD THAT IS NOW RADIATING DOWN L ARM. PT A&O, RESPS EVEN AND UNLABORED, ALL MONITORS ATTACHED, NSR, NADN. WARM BLANKET PROVIDED, CALL LIGHT IN REACH. LAB AT BEDSIDE.
[2020-08-03 16:59] LABS: BASOPHILS % (AUTO) 1 % (0-1); EOSINOPHILS % (AUTO) 3 % (1-7); LYMPHOCYTES % (AUTO) 26 % (22-44); MEAN CORPUSCULAR HEMOGLOBIN 24.3 pg (27.0-34.8); MEAN CORPUSCULAR HGB CONC 32.4 g/dL (32.4-35.8); MEAN PLATELET VOLUME 6.9 fL (7.4-10.4); MONOCYTES % (AUTO) 7 % (2-9); NEUTROPHILS % (AUTO) 64 % (42-75); PLATELET COUNT 351 x10^3/uL (130-400); RED BLOOD COUNT 4.55 x10^6/uL (3.82-5.3)
[2020-08-03 17:08] LABS: ALBUMIN 3.9 g/dL (3.4-5.0); ANION GAP 9 mmol/L (5-15); CALCIUM 8.8 mg/dL (8.5-10.1); CHLORIDE 105 mmol/L (98-107)
[2020-08-03 17:14] LABS: ALANINE AMINOTRANSFERASE 16 U/L (12-78); ALKALINE PHOSPHATASE 84 U/L (45-117); BILIRUBIN,TOTAL 0.3 mg/dL (0.2-1.0); CREATININE 0.73 mg/dL (0.55-1.02)
[2020-08-03 17:35] LABS: MD MORPH REVIEW ONLY
[2020-08-03 17:36] LABS: <PLATELET ESTIMATE> ADEQUATE
[2020-08-03 17:39] LABS: ANISOCYTOSIS 1+; HYPOCHROMIA 1+; LARGE PLATELETS 1+; MICROCYTOSIS 1+
--- NOTE | 2020-08-03 17:51 | NUR ---
PT SITTING IN BED, A&O, RESPS EVEN AND UNLABORED, ALL MONITORS ATTACHED, NSR, VSS, NADN. AWAITING CT RESULTS AND DISPO. CALL LIGHT IN REACH.
[2020-08-03] MEDS ORDERED: FENTANYL PF 100 MCG/2ML IV PRN (18:30)
[2020-08-03] MEDS ORDERED: ACETAMINOPHEN 500 MG TABLET PO ONE (18:30)
--- NOTE | 2020-08-03 18:35 | NUR ---
preceptor RN note: pt a&o, resps even and unlabored, pt is sinus maria elena with no ectopy on security monitor. pt requesting pain medication for headache present behind right eye. pt denies left arm numbness/pain. erp notified pt had reported left sided chest pain present yesterday, not present today. erp declines to order troponin at this time.
--- NOTE | 2020-08-03 18:38 | NUR ---
rui prieto notified pt is hypertensive at 170/80, prn htn med ordered by rui.
[2020-08-03] MEDS ORDERED: ENALAPRILAT 1.25 MG/ML, 1ML ONE (18:43)
[2020-08-03] MEDS ORDERED: ACETAMINOPHEN 500 MG TABLET ONE (18:43)
--- NOTE | 2020-08-03 18:46 | NUR ---
REPORT RECEIVED FROM LISE BONILLA
--- NOTE | 2020-08-03 18:57 | NUR ---
PT SITTING UPRIGHT ON GURTED, NADN, VSS. PT DENIES ANY NEEDS AT THIS TIME. CALL LIGHT AND BELONGINGS WITHIN REACH. PT MEDICATED PER EMAR. CONTINUOUS MONITORING IN PLACE.
--- NOTE | 2020-08-03 18:59 | NUR ---
report given to CHAD Nathan at bedside. swallow eval performed prior to tylenol admin, pt passed bedside swallow. per EDMD Samir, aspirin not indicated as pt has hx recurrent GIB. pt a&o, resps even and unlabored, denies chest pain. nsr on vector control assistant with no ectopy noted. pt to be admitted, agreeable to plan.
[2020-08-03] MEDS ORDERED: ENALAPRILAT 1.25 MG/ML, 2ML IV PRN (19:00)
[2020-08-03] MEDS ORDERED: FENTANYL PF 100 MCG/2ML ONE (19:52)
--- NOTE | 2020-08-03 19:57 | NUR ---
ANKIT MULLER: [phone]
--- NOTE | 2020-08-03 19:58 | NUR ---
Pt to be admitted to TELE2, room 421. Report called to RIANA BONILLA.
[2020-08-03 20:00] VITALS: BP 173/78
[2020-08-03 20:08] VITALS: BP 173/78
[2020-08-03] MEDS ORDERED: ONDANSETRON 2MG/ML, 2ML IVPush PRN (23:00)
[2020-08-03] MEDS ORDERED: LABETALOL 5MG/ML, 20ML IVPush PRN (23:00)
[2020-08-03] MEDS ORDERED: morphine SULFATE 10 MG/ML, 1ML IV PRN (23:00)
[2020-08-03 23:36] LABS: TROPONIN I < 0.015 ng/mL (0.000-0.045)
[2020-08-03 23:59] VITALS: BP 159/80
[2020-08-04] MEDS: CARVEDILOL 6.25 MG TABLET PO SCH ×3 (00:01→21:59)
[2020-08-04] MEDS: INSULIN LISPRO 100 UNITS/ML, PEN SQ-INSULIN SCH ×5 (00:51→22:08)
[2020-08-04 01:45] VITALS: BP 128/68
[2020-08-04 01:58] LABS: MICROSCOPIC AUTO
[2020-08-04] MEDS: LEVOTHYROXINE 150 MCG TABLET PO SCH (05:46)
[2020-08-04 05:47] LABS: CALCIUM 8.3 mg/dL (8.5-10.1); CHLORIDE 107 mmol/L (98-107)
[2020-08-04 05:48] LABS: BASOPHILS % (AUTO) 1 % (0-1); EOSINOPHILS % (AUTO) 3 % (1-7); LYMPHOCYTES % (AUTO) 27 % (22-44); MEAN CORPUSCULAR HEMOGLOBIN 24.1 pg (27.0-34.8); MONOCYTES % (AUTO) 8 % (2-9); NEUTROPHILS % (AUTO) 62 % (42-75); PLATELET COUNT 326 x10^3/uL (130-400); RED BLOOD COUNT 4.34 x10^6/uL (3.82-5.3); RED CELL DISTRIBUTION WIDTH 21.2 % (9.6-15.2)
[2020-08-04 05:50] LABS: MD NO
[2020-08-04 05:52] LABS: ANION GAP 6 mmol/L (5-15); CHOL/HDL RATIO 5.2; CHOLESTEROL, TOTAL 249 mg/dL (140-239); CREATININE 0.66 mg/dL (0.55-1.02); HDL CHOL % 19 % (28-40); HDL CHOLESTEROL (DIRECT) 48 mg/dL (40-60); LDL CHOLESTEROL,CALCULATED 157 mg/dL (54-169); LDL/HDL RATIO 3.3 (0.5-3.0); TRIGLYCERIDES 218 mg/dL (50-200); VLDL CHOLESTEROL 44 mg/dL (0-25)
[2020-08-04 07:10] VITALS: BP 124/73
[2020-08-04] MEDS: PANTOPRAZOLE 40MG TABLET PO SCH (08:12)
[2020-08-04] MEDS: ATORVASTATIN 40 MG TABLET PO SCH (08:12)
[2020-08-04] MEDS: FERROUS SULFATE 325 MG TABLET PO SCH ×2 (08:12→21:59)
[2020-08-04] MEDS: POTASSIUM CHLORIDE 20 MEQ PACKET PO SCH (08:12)
[2020-08-04 08:22] LABS: TROPONIN I < 0.015 ng/mL (0.000-0.045)
[2020-08-04] MEDS: VALSARTAN 160 MG TABLET PO SCH (09:59)
[2020-08-04] MEDS: TIMOLOL OPHTH 0.5%, 5ML OP SCH (10:32)
[2020-08-04] MEDS: ACETAMINOPHEN 325 MG TABLET PO PRN ×3 (12:02→21:58)
[2020-08-04 12:22] VITALS: BP 127/76
[2020-08-04] MEDS: FENOFIBRATE 54 MG TABLET PO SCH (17:16)
[2020-08-04 18:27] VITALS: BP 118/70
[2020-08-05 01:40] VITALS: BP 120/80
[2020-08-05 06:29] VITALS: BP 154/86
[2020-08-05] MEDS: INSULIN LISPRO 100 UNITS/ML, PEN SQ-INSULIN SCH ×3 (07:52→15:21)
[2020-08-05] MEDS ORDERED: REGADENOSON 0.4 MG/5 ML SYRINGE ONE (08:44)
[2020-08-05] MEDS: LEVOTHYROXINE 150 MCG TABLET PO SCH (09:00)
[2020-08-05] MEDS ORDERED: METOCLOPRAMIDE 5 MG/ML, 2ML IVPush PRN (12:00)
[2020-08-05] MEDS: VALSARTAN 160 MG TABLET PO SCH (13:24)
[2020-08-05] MEDS: ATORVASTATIN 40 MG TABLET PO SCH (13:24)
[2020-08-05] MEDS: CARVEDILOL 6.25 MG TABLET PO SCH (13:24)
[2020-08-05] MEDS: FENOFIBRATE 54 MG TABLET PO SCH (13:24)
[2020-08-05] MEDS: TIMOLOL OPHTH 0.5%, 5ML OP SCH (13:24)
[2020-08-05] MEDS: FERROUS SULFATE 325 MG TABLET PO SCH (13:24)
[2020-08-05] MEDS: POTASSIUM CHLORIDE 20 MEQ PACKET PO SCH (13:25)
[2020-08-05] MEDS: PANTOPRAZOLE 40MG TABLET PO SCH (13:25)
[2020-08-05 13:43] VITALS: BP 151/77
== END 2020-08-05 17:24 | disposition home or self-care (01) ==
LOC: ED 19:14 → EDIP 19:26 → INTOOBSV 19:26 → 4WST 20:14
PROVIDERS: ADMIT Family Medicine; ATTEND Family Medicine
DX: R07.89 Other chest pain (principal); I25.10 Atherosclerotic heart disease of native coronary artery without angina pectoris; E11.65 Type 2 diabetes mellitus with hyperglycemia; R51.9 Headache, unspecified; I10 Essential (primary) hypertension; E78.5 Hyperlipidemia, unspecified; E03.9 Hypothyroidism, unspecified; H40.9 Unspecified glaucoma; R20.2 Paresthesia of skin; R20.0 Anesthesia of skin; Q21.1 Atrial septal defect; I25.2 Old myocardial infarction; Z66 Do not resuscitate; Z86.73 Personal history of transient ischemic attack (TIA), and cerebral infarction without residual deficits; Z88.0 Allergy status to penicillin; Z79.899 Other long term (current) drug therapy; Z79.84 Long term (current) use of oral hypoglycemic drugs; Z96.642 Presence of left artificial hip joint; Z87.19 Personal history of other diseases of the digestive system
CPT/HCPCS: 36415; 70450; 70551; 71045; 78452; 80048; 80053; 80061; 81001; 82962; 83036; 83880; 84443; 84484; 85025; 87077; 87086; 87186; 93005; 93017; 93306; 96374; 96375; 97161; 99285; A9502; G0378; J1815; J2270; J2785; J3010